=== PATIENT | female | born 1975 | race Caucasian/White ===

== ENCOUNTER 2019-08-25 16:26 | Outpatient (CLI) | payer OTHER, BC, SELFPAY ==
--- NOTE | ~2019-08-25 | XR_ITS ---
EXAMINATION: XR chest 2V DATE: 08/25/2019 16:52 INDICATION: Shortness of breath. TECHNIQUE: Frontal and lateral views of the chest were obtained. COMPARISON: Chest 2 views 04/17/2017 FINDINGS: The chest demonstrates clear lungs without pneumonia, pleural effusion, or pneumothorax. Th e heart size is normal. IMPRESSION: 1. No acute cardiopulmonary disease. Reviewed, dictated and finalized at location A.
== END 2019-08-25 16:27 | disposition home or self-care (01) ==
LOC: ANHIMG 16:30
PROVIDERS: PCP Family Medicine; Visit Provider Nurse Practitioner Family
DX: R06.02 Shortness of breath (principal)
CPT/HCPCS: 71046

== ENCOUNTER 2019-08-31 18:39 | Emergency (ER) | payer OTHER, BC, SELFPAY ==
--- NOTE | ~2019-08-31 | XR_ITS ---
EXAMINATION: XR chest 1V portable EXAM DATE: 08/31/2019 19:19 INDICATION: Dyspnea. TECHNIQUE: Frontal and lateral projections of the chest obtained and reviewed. Comparison is made to prior examination from 08/25/2019. FINDINGS: The lungs are clear. There are no pleural effusions. The cardiomediastinal silhouette is within normal limits. There is no pneumothorax suspected. The bones and soft tissues are unremarkab le. IMPRESSION: No acute cardiopulmonary findings. Reviewed, dictated and finalized at location A.
--- NOTE | 2019-08-31 18:50 | ED.SOB ---
HPI - SOB/Dyspnea General Chief Complaint: Shortness of Breath/Dyspnea Stated Complaint: sob, heart palpitations neg covid 19 test Time Seen by Provider: 08/31/19 18:45 Source: patient and RN notes reviewed Mode of arrival: ambulatory Limitations: no limitations History of Present Illness HPI Narrative: Pt is a 44 y/o female with a Hx of asthma, who presents to the ED with c/o intermittent SOB starting 6 days ago. She notes that she was evaluated at [facility] ED for her symptoms on 08/26/19, and states that she received a test for COVID-19 at that time. Pt notes that yesterday she was advised the test came back negative. She states that she has been in contact with her PCP for her symptoms, and notes that he has prescribed her Ceftin and Augmentin. Pt states that she has also been using some of her 's DuoNeb at home. She states that she is having trouble breathing due to her throat feeling constricted. She reports postnasal discharge, intermittent palpitations, lightheadedness, and dizziness accompanying her SOB, but denies any fever, chills, or vomiting. Pt states that her palpitations are currently resolved. She notes that she also developed nausea while eating dinner earlier this evening. MD elicited complaint: shortness of breath Pertinent past history: asthma Onset (ago): day(s) (6) Timing: intermittent Known history of: asthma Associated symptoms: palpitations (resolved), nausea/vomiting (nausea), dizziness, lightheadedness and other (postnasal discharge) Related Data Allergies Allergy/AdvReac Type Severity Reaction Status Date / Time cetyl alcohol Allergy Severe RASH Verified 01/01/18 09:38 skin cleanser Allergy Severe RASH Verified 01/01/18 09:38 sodium lauryl sulfate Allergy Severe RASH Verified 01/01/18 09:38 stearyl alcohol Allergy Severe RASH Verified 01/01/18 09:38 erythromycin base Allergy Unknown Unknown Verified 08/21/19 09:41 paraben Allergy Unknown Unknown Verified 08/21/19 09:41 propylene glycol Allergy Unknown Unknown Verified 08/21/19 09:41 soap Allergy Unknown Unknown Verified 08/21/19 09:41 Sulfa (Sulfonamide Allergy Unknown Unknown Verified 08/21/19 09:41 Antibiotics) sulfanilamide Allergy Unknown Unknown Verified 08/21/19 09:41 tetracycline Allergy Unknown Unknown Verified 08/21/19 09:41 Wasp Allergy Intermediate REDNESS Uncoded 01/01/18 09:38 Review of Systems Review of Systems: All systems reviewed & are unremarkable except as noted in HPI and below Constitutional: Constitutional: Denies chills and Denies fever(s) ENT: Reports post nasal drip Cardiovascular: Cardiovascular: Reports palpitations (resolved) Respiratory: Respiratory: Reports dyspnea Gastrointestinal: Gastrointestinal: Reports nausea and Denies vomiting Neurologic: Reports dizziness and Reports other (lightheadedness) [facility] Past Medical History Medical History Asthma Gastric ulcer GERD (gastroesophageal reflux disease) Hyperthyroidism Peripheral neuropathy Surgical History Surgical History History of lumbar surgery History of lumpectomy of left breast Hx of appendectomy Hx of tonsillectomy Social History Social History Smoking status: Never smoker Alcohol intake: current Exam Narrative: Exam Narrative: General appearance: Well-developed, well-nourished, mask on, sat on room air by pulse oximetry at 100%, at the bedside patient in sitting up position, with hyperventilation. Skin: Normal color Head: Normocephalic, nontraumatic Eyes: Clear conjunctiva ENT: Oropharynx normal, ears normal, nose normal Neck: Supple, nontender Chest and respiratory: Airway patent, no respiratory distress, no accessory muscle use Heart: Regular rate/rhythm Abdomen: Soft, nontender, no organomegaly, quiet bowel sounds Vascular: Normal peripheral pulses, normal capillary refill.
[2019-08-31 18:52] VITALS: BP 142/80; PULSE 95; RESP 22; TEMP 36.9; O2SAT 100
--- NOTE | 2019-08-31 19:03 | ECG_ITS ---
Measurements Intervals [place] Rate: 89 P: 31 LA: 151 QRS: 36 QRSD: 81 T: 12 QT: 355 QTc: 433 Interpretive Statements SINUS RHYTHM RSR' IN V1 OR V2, PROBABLY NORMAL VARIANT BORDERLINE ST-T WAVE ABNORMALITY- INF/LAT LEADS BASELINE WANDER- I, II, AVR, AVL, AVF, V1-V6 BORDERLINE ECG Electronically Signed On 09-01-2019 7:10:12 CDT by Connor Escamilla D.O.
[2019-08-31 19:06] VITALS: O2SAT 99
[2019-08-31 19:07] VITALS: PULSE 86
[2019-08-31 19:10] VITALS: BP 134/98; PULSE 87; RESP 19; TEMP 36.8; O2SAT 100
[2019-08-31 19:20] LABS: Basophils Percent Auto 0.3 % (0.2-1.2); Eosinophils Percent Auto 0.2 % (0-4.4); Hemoglobin 13.4 g/dL (12.0-15.0); Immature Granulocyte Absolute 0.03 K/mm3 (0.00-0.031); Immature Granulocyte Percent A 0.3 % (0-0.5); Lymphocytes Absolute Auto 3.07 K/mm3 (0.9-3.2); Lymphocytes Percent Auto 33.8 % (18.3-44.2); Mean Corpuscular HGB Conc 33.5 g/dl (32-36); Mean Corpuscular Hemoglobin 29.1 pg (26-34); Mean Platelet Volume 10.3 fl (7.4-10.4); Monocytes Absolute Auto 0.5 K/mm3 (0.1-0.6); Monocytes Percent Auto 5.4 % (2.6-8.5); Neutrophils Absolute Auto 5.5 K/mm3 (1.3-6.7); Platelet Count Result 335 k/mm3 (150-375); Red Cell Distribution Width 12.8 % (11.5-14.5); White Blood Count 9.1 K/mm3 (4.5-10.0)
--- NOTE | 2019-08-31 19:34 | PC.NURSE ---
Assumed care of pt at this time. report from LAINE Garcia
[2019-08-31 19:35] LABS: Base Excess ABG 2.8 mEq/l (+/-2.0); Fractional Inspired Oxygen 21 %; HCO3 ABG 21.7 mEq/l (22.0-26.0); Oxygen Content ABG 19.6 %vol (16.0-22.0); Oxygen Saturation ABG 99.1 % (95.0-100.0); Oxyhemoglobin 97.8 % THb (90.0-100.0); PO2 FiO2 Ratio Arterial Blood 5.95 %; Total Hemoglobin 14.1 g/dL (12.0-18.0)
[2019-08-31 19:37] LABS: PCO2 ABG 20.7 mmHg (35.0-45.0); pH ABG 7.638 (7.350-7.450)
[2019-08-31 19:38] LABS: Device ROOM AIR; Modified Allen's Test Pass; Site Drawn LEFT RADIAL
[2019-08-31 19:39] LABS: D Dimer 0.27 ug/mL (<0.48)
[2019-08-31 19:41] LABS: Alanine Aminotransferase 32 U/L (4-35); Alkaline Phosphatase 78 U/L (38-126); Aspartate Amino Transferase 39 U/L (14-36); Bilirubin,Total 0.3 mg/dL (0.2-1.3); Blood Urea Nitrogen 12 mg/dL (7-17); Carbon Dioxide 23 mmol/L (22-30); Chloride 104 mmol/L (98-107); Estimated CRCL calculation 85 ml/min; Estimated Glomerular Filt Rate > 60; Glucose 109 mg/dL (65-105); Potassium 3.6 mmol/L (3.4-5.0); Sodium 138 mmol/L (137-145)
[2019-08-31 19:48] LABS: NT Pro B Type Natriuretic Pept 14 PG/ML (5-100); Troponin I < 0.012 ng/mL (0.000-0.034)
[2019-08-31] MEDS: LORAZEPAM INJ 2 MG/ML VIAL 1 MG IV PUSH (20:47)
[2019-08-31 20:49] VITALS: BP 133/87; PULSE 83; RESP 17; O2SAT 100
[2019-08-31 21:00] VITALS: BP 165/65; PULSE 55; RESP 20; O2SAT 99
== END 2019-08-31 21:00 | disposition home or self-care (01) ==
PROVIDERS: Emergency Provider Emergency Medicine; PCP Family Medicine
DX: F45.8 Other somatoform disorders (principal); J45.909 Unspecified asthma, uncomplicated; K21.9 Gastro-esophageal reflux disease without esophagitis; G62.9 Polyneuropathy, unspecified; E05.90 Thyrotoxicosis, unspecified without thyrotoxic crisis or storm
CPT/HCPCS: 36415; 36600; 71045; 80053; 82805; 83880; 84484; 85025; 85380; 93005; 96374; 99284; J2060

== ENCOUNTER 2020-05-03 06:54 | Outpatient (NON) | payer OTHER, BC, SELFPAY ==
[2020-05-03 23:36] LABS: SARS-CoV-2 RNA PCR Negative
== END 2020-05-03 06:55 ==
PROVIDERS: PCP Family Medicine; Visit Provider Nurse Practitioner Family
DX: R68.89 Other general symptoms and signs (principal); R05 Cough; J34.89 Other specified disorders of nose and nasal sinuses; Z20.828 Contact with and (suspected) exposure to other viral communicable diseases
CPT/HCPCS: 87635; C9803; U0003

== ENCOUNTER 2020-05-20 16:38 | Emergency (ER) | payer OTHER, BC, SELFPAY ==
--- NOTE | ~2020-05-20 | XR_ITS ---
XR foot RT min 3V 05/20/2020 17:13 INDICATION: Status post fall. Right foot pain. PROCEDURE: 4 views right foot COMPARISON: No prior studies for comparison. FINDINGS: Fracture, dislocation or subluxation is not identified. Lisfranc joint intact. Small degene rative calcaneal enthesophyte. The soft tissues appear within normal limits. No foreign bodies are i dentified. IMPRESSION: 1: NO ACUTE BONE OR JOINT ABNORMALITY IDENTIFIED. Reviewed, dictated and finalized at location A. [employer]URING [employer]ATOR
[2020-05-20 16:51] VITALS: BP 133/91; PULSE 98; RESP 18; TEMP 37.1; O2SAT 98
--- NOTE | 2020-05-20 17:06 | ED.LOWEXIN ---
HPI - Extremity Injury (Lower) General Chief Complaint: Extremity Injury, Lower Stated Complaint: right ankle/toe injury Time Seen by Provider: 05/20/20 16:57 Source: patient and RN notes reviewed Mode of arrival: ambulatory Limitations: no limitations History of Present Illness HPI Narrative: Patient presents today complaining of an injury to her right ankle and foot. She injured her foot this morning when coming down some stairs at home, when tripping on a piece of concrete at the bottom of her stairs. States her ankle likely rolled at this point before falling. She is complaining of pain to the lateral ankle and foot as well as the fifth toe. She does report some tingling to the fifth toe as well. She took 600 mg of ibuprofen at 1530 and has been applying ice throughout the day today. She currently rates her pain 4?5/10. She has been ambulatory on her heel throughout the day. History of ankle sprain on the same ankle. MD complaint: ankle injury Related Data Home Medications Medication Instructions Recorded Confirmed cetirizine 10 mg tablet 10 mg PO DAILY 09/25/19 05/20/20 famotidine [Pepcid] 20 mg DAILY 05/20/20 05/20/20 Allergies Allergy/AdvReac Type Severity Reaction Status Date / Time cetyl alcohol Allergy Severe RASH Verified 05/02/20 09:20 skin cleanser Allergy Severe RASH Verified 05/02/20 09:20 sodium lauryl sulfate Allergy Severe RASH Verified 05/02/20 09:20 stearyl alcohol Allergy Severe RASH Verified 05/02/20 09:20 erythromycin base Allergy Unknown Unknown Verified 05/02/20 09:20 paraben Allergy Unknown Unknown Verified 05/02/20 09:20 propylene glycol Allergy Unknown Unknown Verified 05/02/20 09:20 soap Allergy Unknown Unknown Verified 05/02/20 09:20 Sulfa (Sulfonamide Allergy Unknown Unknown Verified 05/02/20 09:20 Antibiotics) sulfanilamide Allergy Unknown Unknown Verified 05/02/20 09:20 tetracycline Allergy Unknown Unknown Verified 05/02/20 09:20 Wasp Allergy Intermediate REDNESS Uncoded 05/02/20 09:20 Review of Systems Review of Systems: Narrative: CONSTITUTIONAL: Denies body aches, fever, chills, or sweats. EYES: Denies visual changes, redness, or discharge. ENT: Denies rhinorrhea, congestion, sore throat, or otalgia. CARDIOVASCULAR: Denies chest pain, palpitations, or edema. RESPIRATORY: Denies cough or dyspnea. GASTROINTESTINAL: Denies abdominal pain, nausea, vomiting, or diarrhea. GENITOURINARY: Denies dysuria or hematuria. SKIN: Denies rash, itching, or wounds. MUSCULOSKELETAL: Denies back pain, or myalgia. + Right ankle, foot, and toe injury NEUROLOGIC: Denies headache, numbness, tingling, or weakness. PSYCH: Denies depression or anxiety. [facility] Past Medical History Medical History (Updated 05/20/20 @ 17:34 by Marilyn Loo, [facility], ) Asthma Gastric ulcer GERD (gastroesophageal reflux disease) Hyperthyroidism Peripheral neuropathy Surgical History Surgical History History of lumbar surgery History of lumpectomy of left breast Hx of appendectomy Hx of tonsillectomy Family History Family History Grandparent Family history of lung cancer Diabetes mellitus Other Hypertension Social History Social History Smoking status: Never smoker Alcohol intake: current Gender identity (if verbalized by the patient): Female Comments At time of signature, I have reviewed and agree with nursing past medical, surgical, social and family history unless otherwise noted. Please see nursing chart for further information. There is no relevant family history pertinent to the presenting complaint Exam Narrative: Exam Narrative: GENERAL: Well-appearing, well-nourished, and in no acute distress. HEAD: Normocephalic, atraumatic. EYES: EOMI. No redness or drainage. Conjunctivae normal. ENT: Mucous membranes pink a
== END 2020-05-20 17:39 | disposition home or self-care (01) ==
PROVIDERS: Emergency Provider Nurse Practitioner; PCP Family Medicine
DX: S93.401A Sprain of unspecified ligament of right ankle, initial encounter (principal); W18.09XA Striking against other object with subsequent fall, initial encounter; J45.909 Unspecified asthma, uncomplicated; K21.9 Gastro-esophageal reflux disease without esophagitis; E05.90 Thyrotoxicosis, unspecified without thyrotoxic crisis or storm; G62.9 Polyneuropathy, unspecified
CPT/HCPCS: 73630; 99213; G0463

== ENCOUNTER 2020-06-18 08:33 | Outpatient (NON) | payer OTHER, BC, SELFPAY ==
[2020-06-18 14:38] LABS: Influenza Control Positive
[2020-06-18 18:46] LABS: SARS-CoV-2 RNA PCR Positive
== END 2020-06-18 08:34 ==
LOC: ANHCOVIDDT 08:35
PROVIDERS: PCP Family Medicine; Visit Provider Physician Assistant Medical
DX: U07.1 COVID-19 (principal); R68.89 Other general symptoms and signs
CPT/HCPCS: 87804; C9803; U0003; U0005

== ENCOUNTER 2021-04-03 11:26 | Outpatient (CLI) | payer OTHER, BC, SELFPAY ==
--- NOTE | ~2021-04-03 | XR_ITS ---
EXAMINATION: XR hand RT 2V INDICATION: Right hand pain TECHNIQUE: Two views of the right hand are obtained. COMPARISON: None available FINDINGS: Bone alignment is normal. There is no fracture. The joint spaces are maintained. The soft t issues are unremarkable. IMPRESSION: 1. No acute osseous abnormality. Reviewed, dictated and finalized at location B.
== END 2021-04-03 11:27 | disposition home or self-care (01) ==
LOC: ANHIMG 11:32
PROVIDERS: PCP Family Medicine; Visit Provider Physician Assistant Medical
DX: M79.641 Pain in right hand (principal)
CPT/HCPCS: 73120

== ENCOUNTER 2022-09-06 16:33 | Emergency (ER) | payer OTHER, BC, SELFPAY ==
--- NOTE | 2022-09-06 16:45 | ED.URI ---
HPI - URI/Sore Throat General Chief Complaint: Upper Respiratory Infection Stated Complaint: cough Time Seen by Provider: 09/06/22 17:00 Source: patient Mode of arrival: ambulatory Limitations: no limitations History of Present Illness HPI Narrative: Patient is a 47-year-old female that presents with 1 week of congestion and increased cough. Patient reports coughing fits where she feels like she can not catch her breath and then has small amount of sputum come up. Patient states daughter has similar symptoms and has been diagnosed with a sinus infection. Patient denies any fever, ear pain, nausea, vomiting, and diarrhea, sore throat. Has tried Mucinex and takes a daily allergy medicine. Related Data Home Medications Medication Instructions Recorded Confirmed cetirizine 10 mg tablet (Zyrtec) 10 mg PO DAILY 09/25/19 09/06/22 famotidine 20 mg tablet (Pepcid) 20 mg DAILY 05/20/20 09/06/22 azelastine 137 mcg (0.1 %) nasal 137 mcg intranasal DAILY 02/28/21 09/06/22 spray aerosol lifitegrast 5 % eye drops in a 1 drp EACH EYE DAILY 02/28/21 09/06/22 dropperette loteprednol etabonate 0.25 % eye 1 drp EACH EYE DAILY 02/28/21 09/06/22 drops,suspension metoprolol succinate 25 mg 25 mg PO .QD 07/24/22 09/06/22 tablet,extended release 24 hr Allergies Allergy/AdvReac Type Severity Reaction Status Date / Time cetyl alcohol Allergy Severe RASH Verified 09/06/22 16:51 skin cleanser Allergy Severe RASH Verified 09/06/22 16:51 sodium lauryl sulfate Allergy Severe RASH Verified 09/06/22 16:51 stearyl alcohol Allergy Severe RASH Verified 09/06/22 16:51 erythromycin base Allergy Unknown Unknown Verified 09/06/22 16:51 paraben Allergy Unknown Unknown Verified 09/06/22 16:51 propylene glycol Allergy Unknown Unknown Verified 09/06/22 16:51 soap Allergy Unknown Unknown Verified 09/06/22 16:51 Sulfa (Sulfonamide Allergy Unknown Unknown Verified 09/06/22 16:51 Antibiotics) sulfanilamide Allergy Unknown Unknown Verified 09/06/22 16:51 tetracycline Allergy Unknown Unknown Verified 09/06/22 16:51 Wasp Allergy Intermediate REDNESS Uncoded 09/06/22 16:51 Review of Systems Review of Systems: All systems reviewed & are unremarkable except as noted in HPI and below Constitutional: Constitutional: Denies body ache(s), Denies fever(s), Denies headache(s), Denies malaise and Denies weakness Eyes: Eyes: Denies loss of vision ENT: Denies otalgia, Denies headache(s), Reports nasal congestion, Denies sinus pain and Denies sore throat Cardiovascular: Cardiovascular: Denies chest pain, Denies irregular heart rhythm and Denies dyspnea Respiratory: Respiratory: Reports cough and Denies dyspnea Gastrointestinal: Gastrointestinal: Denies abdominal pain, Denies melena, Denies hematochezia, Denies diarrhea, Denies nausea and Denies vomiting Musculoskeletal: Musculoskeletal: Denies back pain, Denies myalgias and Denies arthralgias Integumentary/Breasts: Skin/Breast: Denies pruritus and Denies rash Neurologic: Denies headache(s), Denies loss of vision and Denies weakness Psychiatric: Psychiatric: Reports no additional psychiatric complaints PMFSH Past Medical History Medical History Asthma BMI 28.0-28.9,adult BMI 29.0-29.9,adult BMI greater than 30 COVID-19 Gastric ulcer GERD (gastroesophageal reflux disease) Holter monitor, abnormal Hyperthyroidism Peripheral neuropathy Surgical History Surgical History History of lumbar surgery History of lumpectomy of left breast Hx of appendectomy Hx of tonsillectomy Family History Family History Grandparent Family history of lung cancer Diabetes mellitus Father No problems noted. Mother Gastrointestinal complaint Sibling Depression Other Hypertension Social History Social History (Reviewed 08/07/22 @ 13:41 by Mini Coy
[2022-09-06 16:52] VITALS: BP 130/90; PULSE 84; RESP 18; TEMP 36.4; O2SAT 100
== END 2022-09-06 17:21 | disposition home or self-care (01) ==
PROVIDERS: Emergency Provider Nurse Practitioner Family; PCP Family Medicine
DX: J32.9 Chronic sinusitis, unspecified (principal); J40 Bronchitis, not specified as acute or chronic; J45.909 Unspecified asthma, uncomplicated; K21.9 Gastro-esophageal reflux disease without esophagitis; E05.90 Thyrotoxicosis, unspecified without thyrotoxic crisis or storm; G62.9 Polyneuropathy, unspecified; Z86.16 Personal history of COVID-19
CPT/HCPCS: 99213; G0463

== ENCOUNTER 2023-07-17 09:03 | Emergency (ER) | payer OTHER, BC, SELFPAY ==
--- NOTE | 2023-07-17 09:12 | ED.URI ---
HPI - URI/Sore Throat General Chief Complaint: Upper Respiratory Infection Stated Complaint: Cough, Congestion, Sneeze, Headache, Bodyache Time Seen by Provider: 07/17/23 09:12 Source: patient Mode of arrival: ambulatory Limitations: no limitations History of Present Illness HPI Narrative: Bess is a 48-year-old female patient presenting to the clinic today with complaints of cough, congestion, sneezing, headache, and body aches times 2-3 days. She reports symptoms really started on Saturday however she had some throat spasming on Saturday. Denies any known fever, chest pain, or shortness of breath MD elicited complaint: fever, cough, sore throat, nasal congestion and other (Sneezing, headache and body aches) Related Data Home Medications Medication Instructions Recorded Confirmed famotidine 20 mg tablet (Pepcid) 20 mg PO DAILY 05/20/20 07/17/23 epinephrine 0.3 mg/0.3 mL 0.3 mg IM PRN PRN Allergic Reaction 07/17/23 07/17/23 injection, auto-injector levonorgestrel 21 mcg/24 hours (8 See Rx Instructions .Route .COMPLEX 07/17/23 07/17/23 yrs) 52 mg intrauterine device (Mirena) metoprolol succinate 25 mg 25 mg PO DAILY 07/17/23 07/17/23 tablet,extended release 24 hr Allergies Allergy/AdvReac Type Severity Reaction Status Date / Time cetyl alcohol AdvReac Mild RASH Verified 07/17/23 09:30 erythromycin base AdvReac Mild Rash Verified 07/17/23 09:30 paraben AdvReac Mild Rash Verified 07/17/23 09:30 propylene glycol AdvReac Mild Rash Verified 07/17/23 09:30 skin cleanser AdvReac Mild RASH Verified 07/17/23 09:30 soap AdvReac Mild Rash Verified 07/17/23 09:30 sodium lauryl sulfate AdvReac Mild RASH Verified 07/17/23 09:30 stearyl alcohol AdvReac Mild RASH Verified 07/17/23 09:30 Sulfa (Sulfonamide AdvReac Mild Rash Verified 07/17/23 09:30 Antibiotics) sulfanilamide AdvReac Mild Rash Verified 07/17/23 09:30 tetracycline AdvReac Mild Rash Verified 07/17/23 09:30 venom-wasp AdvReac Mild Redness of Verified 07/17/23 09:30 Skin Review of Systems Review of Systems: Pertinent positives per HPI. Patient denies any fever, rash, visual changes, dizziness, shortness of breath, chest pain, palpitations, nausea, vomiting, diarrhea, constipation, abdominal pain, or any urinary issues. [facility] Past Medical History Medical History Allergic reaction Anxiety about health Asthma BMI 29.0-29.9,adult BMI 30.0-30.9,adult Chest pain COVID-19 Elevated fasting glucose Gastric ulcer GERD (gastroesophageal reflux disease) Holter monitor, abnormal Hyperthyroidism Peripheral neuropathy Stress disorder, acute Surgical History Surgical History History of lumbar surgery History of lumpectomy of left breast Hx of appendectomy Hx of tonsillectomy Family History Family History Grandparent Family history of lung cancer Diabetes mellitus Father No problems noted. Mother Gastrointestinal complaint Sibling Depression Other Hypertension Social History Social History Smoking status: Never smoker Second hand tobacco smoke exposure: Yes Alcohol intake: current Drinks per week: 1 Substance use: never Substance use type: does not use Lack of Transportation: No Lack of Food: Never True Current Housing: I Have Housing Concerned About Future Housing: No Difficulty Paying Gas/Electric Bills: No Difficulty Paying for Meds: No Currently Unemployed: No Education: Associate Degree Difficulty w/ Childcare or Family Care: No Living arrangements: with family Occupation/Education: occupation 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
[2023-07-17 09:44] VITALS: BP 130/85; PULSE 78; RESP 18; TEMP 36.8; O2SAT 98
== END 2023-07-17 09:56 | disposition home or self-care (01) ==
PROVIDERS: Emergency Provider Nurse Practitioner Family; PCP Family Medicine
DX: U07.1 COVID-19 (principal); J45.909 Unspecified asthma, uncomplicated; K21.9 Gastro-esophageal reflux disease without esophagitis; E05.90 Thyrotoxicosis, unspecified without thyrotoxic crisis or storm; G62.9 Polyneuropathy, unspecified
CPT/HCPCS: 87426; 87804; 99213; G0463

== ENCOUNTER 2024-03-18 10:06 | Outpatient (CLI) | payer OTHER, BC, SELFPAY ==
--- NOTE | ~2024-03-18 | MR_ITS ---
MRI of the brain Clinical History: Anesthesia of skin Technique: Axial and sagittal T1-weighted images were acquired. These were followed by axial T2-weigh [place], diffusion weighted, gradient, and FLAIR images. Findings: No abnormal signal seen in the brain parenchyma. No acute infarct, intracranial hemorrhage or mass lesion. Ventricles and subarachnoid spaces are unremarkable. Orbits are unremarkable. Paranasal sinuses and m astoid air cells are clear. Major intracranial flow voids are intact. Sagittal midline structures are intact. IMPRESSION: Normal exam. Reviewed, dictated and finalized at location M. IMPRESSION: Normal exam.
== END 2024-03-18 10:07 | disposition home or self-care (01) ==
LOC: MICIMG 10:07
PROVIDERS: PCP Family Medicine; Visit Provider Nurse Practitioner Adult Health
DX: R20.0 Anesthesia of skin (principal)
CPT/HCPCS: 70551

== ENCOUNTER 2024-10-21 15:28 | Outpatient (CLI) | payer OTHER, SELFPAY ==
--- NOTE | ~2024-10-21 | US_ITS ---
Abdominal Sonogram: Real-time sonographic imaging of the abdomen was performed. Clinical History: Abdominal pain Findings: The liver appears echogenic, with no evidence of bile duct dilatation. Probable focal fatt y sparing versus possibly small cyst adjacent to gallbladder fossa. Main portal vein demonstrates nor mal direction of flow. The spleen is normal in size without evidence of focal lesion. The gallbladde r is well distended, and appears normal with no evidence of gallstone or wall thickening. The common bile duct measures 4 mm. The visualized pancreas, aorta, and IVC are unremarkable. The right kidney measures 10.1 cm in length and the left kidney measures 9.0 cm. There is no hydronephrosis or renal calculus. Impression: Diffuse fatty infiltration of the liver. Reviewed, dictated and finalized at location . Impression: Diffuse fatty infiltration of the liver.
== END 2024-10-21 15:29 | disposition home or self-care (01) ==
LOC: MICIMG 15:29
PROVIDERS: PCP Family Medicine; Visit Provider Nurse Practitioner Family
DX: R10.2 Pelvic and perineal pain (principal); R10.12 Left upper quadrant pain; K76.0 Fatty (change of) liver, not elsewhere classified
CPT/HCPCS: 76700

== ENCOUNTER 2024-11-04 10:22 | Emergency (ER) | payer OTHER, SELFPAY ==
--- OUTSIDE RECORDS SUMMARY | 2024-11-04 10:29 | XMS_ITS ---
Author Organization [facility] Address [address] [place] [address] [place] [id number] Care Team Providers Care Senior Strategy Analyst Name Role Phone HANNAH CLEMENTS, YOCASTA Primary Care Provider Saraha andry RomanochelseaDinh Unavailable [phone] AWILDA IRVING PT Unavailable Unavailable ALLERGIES Allergen (clinical drug ingredient) Drug/Non Drug Allergy documented on EMR Reaction Allergy Type Onset Date Status erythromycin Erythromycin GI upset Drug Allergy A ctive Substance with sulfonamide structure and antibacterial mechanism of action (substance) Sulfa Antibiotics hives Drug Allergy Active tetracycline Tetracycline GI upset Drug Allergy A ctive REASON FOR VISIT LT L4-5/L5-S1 TFE MEDICATIONS Medication SIG (Take, Route, Frequency, Duration) Notes Start Date End Date Status Famotidine 20 MG 1 tablet at bedtime as needed Orally Once a day for 30 day(s) Active Cetirizine HCl 10 MG 1 tablet Orally Onc e a day for 30 day(s) Active Xanax 0.25 MG 1-2 tablets Orally 3 0 minutes prior to injection 01/31/2023 Activ e Metoprolol Succinate ER 25 MG Oral for 90 Active Xanax 0.25 MG 1 tablet Orally 30 m inutes prior to injection for 1 days 05/01/2023 Active Albuterol Sulfate HFA 108 (90 Base) MCG/ACT 1 puff as needed Inhalation every 4 hrs Active Metoprolol Succinate 25 MG 1 capsule Ora lly Once a day for 30 day(s) Active tiZANidine HCl 2 MG 1 tablet as needed O rally Three times a day for 30 days 01/31/2023 Active Ibuprofen 800 MG 1 tablet with food o r milk as needed Orally every 8 hrs Active Encounters Encounter Location Date Provider Diagnosis [facility] [address] [facility] [place] [id number] 05/31/2023 Dinh Austin PLAN OF TREATMENT No Information Progress Notes * Examination Category Sub-Category Detail Notes Category Not es Examination/ Pre-Anesthesia Assessment General: The patient is alert and oriented X 3 in moderate distress secondary to pain HEENT: Normocephalic, atrau matic. PERRL. The oropharynx is clear Neck: There is limited ran ge of motion of the cervical spine to 60 degrees with extension and lateral rotation bilaterally. There is tenderness to palpation over the bilateral C3-4 through C7-T1 facet joints. Extension and lateral rotation of the cervical spine reproduces the patients typical axial neck pain. The axial loading test is positive. There is diffuse tenderness to palpation over the bilateral cervical paraspinal muscles and significant muscle spasm throughout. There are palpable myofascial trigger points within the body of the trapezius muscles bilaterally Heart: Regular rate and rhy thm Chest: Clear to auscultatio n bilaterally Abdomen: Soft and benign with normal bowel sounds throughout Musculoskeletal and Extremities: There i s tenderness to palpation over the bilateral L2-3 through L5-S1 facet joints. Extension and lateral rotation of the lumbar spine reproduces the patient's typical axial low back pain. Sacha's, [place]'s and [place]'s are positive bilaterally. There is tenderness to palpation over the left sacroiliac joint and greater trochanter. There is tenderness to palpation over the bilateral lumbar paraspinal muscles Neurological: There is positive st raight leg raising on the left. There are no focal strength deficits in the bilateral upper and lower extremities Skin: Clean, dry and intac t Psychiatric: Mood and affect are normal
--- OUTSIDE RECORDS SUMMARY | 2024-11-04 10:29 | XMS_ITS | Referral Summary ---
Author Organization [facility] [address] [facility] Address [address] [place] [address] Care Team Providers Care Clamshell Operator Name Role Phone Trevor Cantor MD Unavailable [phone] Nitin Villagran MD Primary Care Provider [phone] Yahaira Norwood Unavailable [phone] Mendoza Odonnell MD Unavailable Encounters Date Type Department Care Team Description 10/20/2024 12:01 PM CDT - 10/20/2024 11:59 PM CDT Hospital Encounter [address] [address] Abdominal pain Discharge Disposition: Discharge to home or self care 10/20/2024 12:[address] 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); Iron deficiency anemia secondary to blood loss (chronic) 08/14/2024 2:43 PM CDT - 08/14/2024 11:59 PM CDT Hospital Encounter [facility] B[facility] [address] [address] Category 3 mammography result with short follow-up interval suggested for probably benign finding Discharge Disposition: Discharge to home or self care from Last 3 Months Allergies Active Allergy Reactions Criticality Noted Date Comments Clindamycin Itching,Muscle pain Medium 01/03/2024 Dysphagia Erythromycin Nausea only,Stomach upset Low 01/09/2023 Metronidazole Headache Low 08/02/2023 Levofloxacin Other (See comments) Low 01/12/2022 Tendon pain Other Hives Medium 05/15/2022 Wasps/hornets/ceta melody cleanser Sulfa (Sulfonamide Antibiotics) Hives Medium 01/09/2023 Tetracycline Stomach upset Low 01/09/2023 Tetracyclines Nausea only Low Abd pain and cramping Medications cetirizine (ZyrTEC) 10 mg tablet Take 1 tablet (10 mg total) by mouth nightly Active azelastine (ASTELIN) 137 mcg (0.1 %) nasal spray Administer 1 spray into each nostril 2 (two) times a day Use in each nostril as directed 30 mL 6 0 Active vitamin E (AQUASOL E) 400 unit capsule Take 1 capsule (400 Units total) by mouth daily 04/30/2022 last dose Active ProAir HFA 90 mcg/actuation inhalerIndicati ons:Bronchitis Inhale 2 puffs every 6 (six) hours as needed for wheezing or shortness of breath 1 each 3 Active metoprolol XL (TOPROL-XL) 25 mg extended release tablet TAKE ONE TABLET BY MOUTH NIGHTLY 90 tablet 3 4 Active Active Problems Problem Noted Date Diagnosed Date ELLIOTT (obstructive sleep apnea) 01/06/2024 Assessment & Plan (07/06/2024 3:43 PM AVIONICS SYSTEMS INTEGRATION SPECIALIST): The patient continue to wear CPAP auto titrating range 5-20 cm water pressure while sleeping. Her DME is [facility]. I did send an order over for the patient to be refitted for her mask. Assessment & Plan (01/06/2024 10:19 AM CDT): The patient is benefitting from the auto titrating CPAP unit with a range of 5- 20 cm water pressure for ongoing symptoms of ELLIOTT. Her DME supplier is [facility] home care services. She will follow up here in 4 months. If the daytime hypersomnia persists, then I would consider stimulant therapy. Nasal obstruction 01/01/2024 Assessment & Plan (01/01/2024 8:33 PM CDT): She is deviation of her nasal septum to the right side superiorly which could be causing these symptoms. I reviewed that with her on her CT scan showing her the films. She also may have some problems with nasal vestibulitis. I recommended treating her presumptively for a staph infection although I do not think she clinically has 1. I am going to treat her with a steroid pack along with clindamycin. I am going to have her switch to Bactroban ointment for the nasal crusting that she deals with. She would like to do that. If she has continued problems I have asked her to return. Facial pain 01/01/2024 Assessment & Plan (01/01/2024 8:34 PM CDT): I reviewed her scan with her. I do not see any evidence of a displaced fracture. I wonder if maybe she had a hairline fracture which could be painful for a while. I told him to expect this to continue to improve and if it does not I would like to see her again. She understands. Equivocal stress test 02/19/2023 Displacement of intrauterine contraceptive devic e 05/04/2022 Overview (05/04/2022): Added automatically from request for surgery [id number] Palpitations 10/03/2021 COVID-19 10/03/2021 Dizziness 10/03/2021 Precordial pain 10/03/2021 Hypertrophy of nasal turbinates 03/28/2020 Deviated nasal septum 03/28/2020 Assessment & Plan (01/01/2024 8:35 PM CDT): She does have some deviation of her nasal septum to the right superiorly. I do not think that she really needs to have surgery to correct this and we talked about that. She really isn't interested in pursuing that either. Chronic sinusitis 02/01/2020 History of Graves' disease 09/29/2019 Gestational diabetes 09/29/2019 Resolved Problems Problem Noted Date Diagnosed Date Resolved Date Snoring 09/03/2023 01/06/2024 Assessment & Plan (09/03/2023 4:07 PM CDT): The patient presents with snoring and daytime fatigue. Per her insurance, I have ordered a home sleep test and she will follow up here in 3 months. Immunizations Immunization Administration Dates Next Due Pfizer SARS-CoV-2 Monovalent Vaccination (12+ Yrs) PURPLE 12/16/2020 Tdap 03/31/2016 Social History Tobacco Use Types Packs/Day Years Used Date Smoking Tobacco: Never Smokeless Tobacco: Never Tobacco Cessation:Counseling Given: Not Answered Alcohol Use Standard Drinks/Week Comments Yes 0 (1 standard drink = 0.6 oz pur e alcohol) AUDIT-C Answer Date Recorded Q1: How often do you have a drink containing alc ohol? Monthly or less 07/06/2024 Q2: How many drinks containi ng alcohol do you have on a typical day when you are drinking? 1 or 2 07/06/2024 Q3: How often do you have si x or more drinks on one occasion? Never 07/06/2024 PHQ-2 Answer Date Recorded PHQ-2 Total Score 0 01/03/2021 Personal Safety Answer Date Recorded Have you ever been in or are you currently in a harmful physical or emotional relationship or is someone making you feel afraid or unsafe? Denies 06/26/2024 Comments No Sex and Gender Information Value Date Recorded Sex Assigned at Not on file Legal Sex Female 7:52 AM AVIONICS SYSTEMS INTEGRATION SPECIALIST Gender Identity Female 04/25/2020 4:36 PM AVIONICS SYSTEMS INTEGRATION SPECIALIST Sexual Orientation Straight 04/25/2020 4: 36 PM AVIONICS SYSTEMS INTEGRATION SPECIALIST Last Filed Vital Signs Vital Sign Reading Time Taken Comments Blood Pressure 110/68 07/06/2024 3:30 PM AVIONICS SYSTEMS INTEGRATION SPECIALIST Pulse 87 07/06/2024 3:30 PM AVIONICS SYSTEMS INTEGRATION SPECIALIST Temperature 36.7 C (98 F) 07/06/2024 3:30 PM AVIONICS SYSTEMS INTEGRATION SPECIALIST Respiratory Rate 14 07/06/2024 3:30 PM AVIONICS SYSTEMS INTEGRATION SPECIALIST Oxygen Saturation 99% 07/06/2024 3:30 PM AVIONICS SYSTEMS INTEGRATION SPECIALIST Inhaled Oxygen Concentration - - Weight 90.6 kg (199 lb 11.2 oz) 07/06/2024 3:30 PM AVIONICS SYSTEMS INTEGRATION SPECIALIST Height 167.6 cm (5' 6) 07/06/2024 3:30 PM AVIONICS SYSTEMS INTEGRATION SPECIALIST Body Mass Index 32.23 07/06/2024 3:30 PM AVIONICS SYSTEMS INTEGRATION SPECIALIST Plan of Treatment Upcoming Encounters Date Type Department Care Team (Latest Contact Info) Description 11/19/2024 11:00 AM CDT Hospital Encounter [facility] [address] [place] [address] Quinton Diaz, [address] [address] 11/19/2024 11:00 AM CDT - 11/19/2024 11:30 AM CDT Surgery [facility] [address] [place] [address] Quinton Diaz, [address] [id number] ESOPHAGOGASTRODUODENOSCOPY Scheduled Procedures Name Priority Associated Diagnoses Date/Ti me ESOPHAGOGASTRODUODENOSCOPY Bloating Gerd RUQ pain 11/19/2024 11:00 AM CDT GASTRO-ESOPHOGEAL REFLUX SEBASTIAN T WITH ELCT Bloating Gerd RUQ pain 11/19/2024 11:00 AM CDT Medical Devices Implanted Type Area Banquet Director Device Identifier Shelf Expiration Date Model / Serial / Lot [employer] Marker Biospy Site Mini Cork Shape [employer]el[employer] - [id number] Implanted:Qty: 1 on 01/04/2023 by Gareth Polk MD at [facility] Clip Left: Breast [employer] [id number] 03/27/2023 JOSEK-KRISTY ERO / / [id number] Procedures Procedure Name Priority Date/Time Associated Diagnosis Comments EGFR Routine 10/20/2024 12:01 PM CDT Abdominal pain URINALYSIS, MICROSCOPIC ONLY Routine 10/20/2024 12:01 PM CDT Abdominal pain AMYLASE Routine 10/20/2024 12:01 PM CDT Abdominal pain COMPREHENSIVE METABOLIC PANEL Routine 10/20/2024 12:01 PM CDT Abdominal pain CBC WITHOUT DIFFERENTIAL Routine 10/20/2024 12:01 PM CDT Abdominal pain LIPASE Routine 10/20/2024 12:01 PM CDT Abdominal pain URINALYSIS AND REFLEX TO MICROSCOPIC AND CULTURE Routine 10/20/2024 12:01 PM CDT Abdominal pain EGFR Routine 08/24/2024 10:05 AM CDT 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) DIFFERENTIAL AUTO Routine 08/24/2024 10: 05 AM CDT 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) INSULIN, TOTAL Routine 08/24/2024 10:05 AM CDT 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) CBC WITH AUTO DIFFERENTIAL Routine 08/24/2024 10:05 AM CDT 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) IRON PROFILE W/ IBC Routine 08/24/2024 1 0:05 AM CDT 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) TSH Routine 08/24/2024 10:05 AM CDT 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) FERRITIN Routine 08/24/2024 10:05 AM CDT 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) COMPREHENSIVE METABOLIC PANEL Routine 08/24/2024 10:05 AM CDT 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) LIPID PANEL Routine 08/24/2024 10:05 AM CDT 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) T3, FREE Routine 08/24/2024 10:05 AM CDT 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) THYROGLOBULIN ANTIBODIES Routine 08/24/2024 10:05 AM CDT 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) THYROID PEROXIDASE ANTIBODY Routine 08/24/2024 10:05 AM CDT 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) VITAMIN D 25 HYDROXY Routine 08/24/2024 10:05 AM CDT 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) T4, FREE Routine 08/24/2024 10:05 AM CDT 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) KENJI-VENTURA VIRUS VCA ANTIBODY PANEL Routine 08/24/2024 10:05 AM CDT 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) CMV, IGG AND IGM ANTIBODIES Routine 08/24/2024 10:05 AM CDT 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) PARVOVIRUS B19 ANTIBODY, IGG AND IGM Routine 08/24/2024 10:05 AM CDT BLOOD MISC TO [place]GEWATER Routine 08/24/2024 12 :00 AM CDT BLOOD MISC TO [place] Routine 08/24/2024 12 :00 AM CDT DIAGNOSTIC MAMMOGRAM BILATERAL W RAFITA Schedule Routine, Read Routine (OP Routine) 08/14/2024 3:16 PM CDT Category 3 mammography result with short follow-up interval suggested for probably benign finding COLONOSCOPY 06/26/2024 9:46 AM AVIONICS SYSTEMS INTEGRATION SPECIALIST PAP AND HIGH RISK HPV, REFLEX TO GENOTYPING Routine 08/28/2021 11:38 AM CDT Well woman exam from Last 3 Months or Most Recently Relevant to Health Maintenance Results * eGFR (10/20/2024 12:01 PM CDT) eGFR 88 >=60 mL/min/1. 73 m2 Comment: Interpretive Data Reference Interval Normal >/= 90 mL/min/1.73m2 Mildly decreased* 60 - 89 mL/min/1.73m2 Mildly to moderately decreased 45 - 59 mL/min/1.73m2 Moderately to severely decreased 30 - 44 mL/min/1.73m2 Severely decreased 15 - 29 mL/min/1.73m2 Kidney Failure < 15 mL/min/1.73m2 *Relative to young adult level Estimated glomerular filtration rate is determined by the 2020 CKD-EPI equation recommended by the National Kidney Foundation (A Unifying Approach to GFR Estimation: Recommendations of the NKF-ASK Task Force on Reassessing the Inclusion of Race in Diagnosing Kidney Disease, JASN 2020). The CKD-EPI equation should not be used for patients with unstable renal function and has not been validated in children and those over 70. Current interpretive data was last reviewed 2021. Blood 10/20/2024 12:0 1 PM CDT 10/20/2024 10:14 PM CDT us Senait Toledo NP LAB BLOOD ORDERABLES Final Result [facility] [address] Department [place] [address] * (ABNORMAL) Urinalysis reflex to microscopic and culture Urine, clean voided (10/20/2024 12:01 PM CDT) Color, ur Yellow Yellow Clarity, ur Clear Clear CERNER Specific gravity, ur 1.015 1.003 - 1.030 CERNER CH pH, urine 7.0 CERNER Comment: Interpretive Data U rine pH is affected by diet, medications, systemic acid-base disturbances, and renal tubular function. pH may affect urinary stone formation. For example, urine pH below 6.0 may help reduce the tendency for calcium phosphate stones and pH greater than 6.0 may reduce the tendency for uric acid stone formation. Source: [facility] Current Interpretive Data was last revised on 2017 Protein, ur ql Negative Negative CERNER CH Glucose, ur ql Negative Negative CERNER CH Ketones, ur Negative Negative CERNER CH Bilirubin, ur Negative Negative CERNER CH Blood, ur Trace(A) Negative CERNER CH Urobilinogen, ur <2.0 <2.0 mg/dL [facility] CH Nitrite, ur Negative Negative [facility] CH Leukocyte esterase, ur Negative Negative CERNER CH UA reflex comment Reflex to microscopic UA will be performed. CERNER Urine, clean voided 10/20/2024 12:01 PM CDT 10/20/2024 10:05 PM CDT Narrative CERNER CH - 10/20/2024 10:24 PM CDT Fax results to [phone] alina velazco Senait Toledo NP LAB MICROBIOLOGY - GENERAL ORDERABLES Final Result [facility] [address] [place] [address] * (ABNORMAL) Urinalysis, microscopic only (10/20/2024 12:01 PM CDT) WBC, ur 0-5 0 - 5 /HPF RBC, ur 0-2 0 - 2 /HPF CERNER Epithelial cells, squamous, ur 1-5 0 - 5 /HPF CERNER CH Mucous, ur Present(A) CERNER CH Culture Reflex Comment Reflex conditions for urine culture (WBC >10) not met. CERNER Urine, clean voided 10/20/2024 12:01 PM CDT 10/20/2024 10:05 PM CDT Senait Toledo BEHAVIORAL HEALTH CONSULTANT LAB URINE ORDERABLES Final Result [facility] [address] [place] [address] * (ABNORMAL) CBC without differential (10/20/2024 12:01 PM CDT) WBC 10.59(H) 3.80 - 9.90 K/cumm Hgb 13.4 11.9 - 15.5 g/dL [facility] Hct 44.0 35.6 - 45.5 % [facility] CH Plt 324 150 - 400 K/cumm [facility] CH MPV 10.6 9.1 - 12.3 fL [facility] RBC 4.69 3.90 - 5.20 M/cumm [facility] CH MCV 93.8 81.3 - 96.4 fL [facility] MCH 28.6 27.1 - 33.3 pg [facility] MCHC 30.5(L) 32.3 - 35.7 g/dL [facility] CH RDW CV 13.7 11.1 - 14.9 % [facility] CH RDW SD 46.3 35.7 - 48.1 fL [facility] NRBC abs 0.00 0.00 - 0.01 K/cumm [facility] Blood Venous blood specimen / Unknown 10/20/2024 12:01 PM CDT 10/20/2024 10:05 PM CDT Senait Toledo BEHAVIORAL HEALTH CONSULTANT LAB BLOOD ORDERABLES Final Result [facility] [address] Department of [employer] [place], [place] [id number] * Lipase (10/20/2024 12:01 PM CDT) Lipase 22 10 - 99 Units/L Blood Venous blood specimen / Unknown 10/20/2024 12:01 PM CDT 10/20/2024 10:05 PM CDT Senait Toledo BEHAVIORAL HEALTH CONSULTANT LAB BLOOD ORDERABLES Final Result [facility] [address] [place] [address] * Amylase (10/20/2024 12:01 PM CDT) Amylase 35 30 - 99 Units/L Blood 10/20/2024 12:0 1 PM CDT 10/20/2024 10:05 PM CDT Senait Toledo BEHAVIORAL HEALTH CONSULTANT LAB BLOOD ORDERABLES Final Result Performing Organization Address [facility] de Phone Number KENAN YUSUF [address] [place] [address] * (ABNORMAL) Comprehensive metabolic panel (10/20/2024 12:01 PM CDT) Pathologist [facility] Sodium 141 135 - 145 mmol/L Potassium, pl 4.0 3.3 - 4.9 mmol/L CERNER CH Chloride 104 97 - 110 mmol/L CERNER CH CO2 29 22 - 32 mmol/L CERNER CH Anion gap 8 2 - 15 mmol/L [facility] BUN 5(L) 6 - 25 mg/dL [facility] Creatinine 0.82 0.60 - 1.10 mg/dL CERNER Glucose 108 70 - 199 mg/dL CERNER Comment: Interpretive Data Fasting glucose >/= 126 mg/dl is diagnostic for diabetes. Fasting is defined as no caloric intake for at least 8 hours. Fasting glucose between 100 mg/dl to 125 mg/dl is diagnostic of prediabetes. In a patient with classic symptoms of hyperglycemia or hyperglycemic crisis, a random glucose >/= 200 mg/dl is diagnostic for diabetes. In the absence of unequivocal hyperglycemia, results should be confirmed by repeat testing. The classification and Diagnosis of Diabetes Diabetes Care 2021; 46: S19-S40. Current interpretive data was last revised 2022. Calcium 9.7 8.5 - 10.3 mg/dL CERNER CH Bilirubin, total 0.4 0.1 - 1.2 mg/dL [facility] CH Protein, pl 7.4 6.5 - 8.5 g/dL [facility] CH Albumin 4.3 3.5 - 5.0 g/dL CERN[facility] CH Alk phos 91 40 - 130 Units/L C[facility] CH ALT 29 7 - 45 Units/L [facility] CH AST 29 10 - 45 Units/L [facility] CH Blood Venous blood specimen / Unknown 10/20/2024 12:01 PM CDT 10/20/2024 10:05 PM CDT Senait Toledo BEHAVIORAL HEALTH CONSULTANT LAB BLOOD ORDERABLES Final Result KE[facility] MADELIN [address] [place] [address] * eGFR (08/24/2024 10:05 AM CDT) eGFR 84 >=60 mL/min/1. 73 m2 Comment: Interpretive Data Reference Interval Normal >/= 90 mL/min/1.73m2 Mildly decreased* 60 - 89 mL/min/1.73m2 Mildly to moderately decreased 45 - 59 mL/min/1.73m2 Moderately to severely decreased 30 - 44 mL/min/1.73m2 Severely decreased 15 - 29 mL/min/1.73m2 Kidney Failure < 15 mL/min/1.73m2 *Relative to young adult level Estimated glomerular filtration rate is determined by the 2020 CKD-EPI equation recommended by the National Kidney Foundation (A Unifying Approach to GFR Estimation: Recommendations of the NKF-ASK Task Force on Reassessing the Inclusion of Race in Diagnosing Kidney Disease, JASN 2020). The CKD-EPI equation should not be used for patients with unstable renal function and has not been validated in children and those over 70. Current interpretive data was last reviewed 2021. Blood 08/24/2024 10:0 5 AM CDT 08/24/2024 9:59 PM CDT Damian Vides DC LAB BLOOD ORDERABLES Final Result CAROLINJUAN YUSUF [address] Department [place] [address] * Differential, auto (08/24/2024 10:05 AM CDT) Neutrophil abs 4.6 1.5 - 6.5 K/cumm Imm gran abs 0.1 0.0 - 0.1 K/cumm CERNER CH Lymphocyte abs 1.9 0.8 - 3.3 K/cumm [facility] CH Monocyte abs 0.5 0.2 - 0.8 K/cumm [facility] CH Eosinophil abs 0.1 0.0 - 0.5 K/cumm [facility] CH Basophil abs 0.0 0.0 - 0.1 K/cumm [facility] CH Neutrophil pct 63.9 % CERNER CH Comment: Interpretive Data Percent cell count reference ranges are not reported, since discordance with absolute values may lead to misinterpretation of CBC data. Current Interpretive Data was last revised on 2017. Imm gran pct 0.8 % CERNER Comment: Interpretive Data Percent cell count reference ranges are not reported, since discordance with absolute values may lead to misinterpretation of CBC data. Current Interpretive Data was last revised on 2017. Lymphocyte pct 26.9 % CERNER Comment: Interpretive Data Percent cell count reference ranges are not reported, since discordance with absolute values may lead to misinterpretation of CBC data. Current Interpretive Data was last revised on 2017. Monocyte pct 6.8 % CERNER Comment: Interpretive Data Percent cell count reference ranges are not reported, since discordance with absolute values may lead to misinterpretation of CBC data. Current Interpretive Data was last revised on 2017. Eosinophil pct 1.0 % CERNER Comment: Interpretive Data Percent cell count reference ranges are not reported, since discordance with absolute values may lead to misinterpretation of CBC data. Current Interpretive Data was last revised on 2017. Basophil pct 0.6 % CERNER Comment: Interpretive Data Percent cell count reference ranges are not reported, since discordance with absolute values may lead to misinterpretation of CBC data. Current Interpretive Data was last revised on 2017. Blood 08/24/2024 10:0 5 AM CDT 08/24/2024 9:57 PM CDT [facility] LAB BLOOD ORDERABLES Final Result Performing Organization Address City/[facility]/ZIP Co de Phone Number KENAN YUSUF [address] [place] [address] * Thyroglobulin antibodies (08/24/2024 10:05 AM CDT) Anti-thyroglobulin <1.8 <4.0 IUnits/mL [facility] ref Lab Comment: ADDITIONAL INFORMATION PLEASE NOTE: The given thyroglobulin antibody (TgAb) reference cutoff of <4.0 IU/mL is for the evaluation of autoimmune thyroiditis. A cutoff of <1.8 IU/mL may be more suitable for the detection of potential thyroglobulin antibody (TgAb) interference in thyroglobulin immunoassays. The thyroglobulin antibody testing method is an immunoenzymatic assay manufactured by [employer]. and performed on the D[employer] DXI 800. Values obtained from different assay methods or kits may be different and cannot be used interchangeably. The results cannot be interpreted as absolute evidence for the presence or absence of malignant disease. Test Performed by: [place] [address] [employer] Tender: Jaciel Chase Ph.D.; CLIA# [id number] Blood 08/24/2024 10:0 5 AM CDT 08/24/2024 9:57 PM CDT Damian Reji Beckye SC LAB BLOOD ORDERABLES Final Result KE[facility] YUSU[facility] [address] [place] [address] [facility] * Iron profile w/ IBC (08/24/2024 10:05 AM CDT) Iron 87 35 - 145 mcg/dl TIBC 337 250 - 400 mcg/dL [facility] Transferrin saturation 26 20 - 50 % [facility] Blood 08/24/2024 10:0 5 AM CDT 08/24/2024 9:57 PM CDT Narrative KENAN - 08/24/2024 10:41 PM CDT Fax results to [phone] tessy gaytan [facility] LAB BLOOD ORDERABLES Final Result KENAN YUSUF [address] Department [place] [address] * (ABNORMAL) CMV, IgG and IgM antibodies Blood (08/24/2024 10:05 AM CDT) CMV IgG Positive(A) Negative Comment: Interpretive Data Negative - Individuals with negative CMV IgG results are presumed to not have had prior exposure or infection with CMV and are, therefore, considered susceptible to primary infection. Equivocal - Equivocal results may occur during acute infection or may be due to nonspecific binding reactions. Submit an additional sample for testing if clinically indicated. Positive - Indicates presence of detectable CMV IgG antibody. Results indicate past or recent CMV infection. Testing performed by: [facility], [address] [place] [address]., [id number] CMV IgM Negative Negative KENAN Comment: Interpretive Data Negative - Negative CMV IgM results suggests that the patient is not experiencing acute or active infection. However, a negative result does not rule-out primary CMV infection. Equivocal - Equivocal results may occur during acute infection or may be due to nonspecific binding reactions. Submit an additional sample for testing if clinically indicated. Positive - Positive CMV IgM results may indicate a recent infection (primary, reactivation, or reinfection). Testing performed by: [facility], [address] [place] [address], [place]., [address] Blood 08/24/2024 10:0 5 AM CDT 08/25/2024 10:09 AM CDT Damian Reji Vides DC LAB MICROBIOLOGY - GENERAL ORDERABLES Final Result KENAN YUSUF [address] [address] Department [place] [address] * (ABNORMAL) CBC with auto differential (08/24/2024 10:05 AM CDT) [facility] WBC 7.1 3.8 - 9.9 K/cumm Hgb 13.0 11.9 - 15.5 g/dL [facility] Hct 41.2 35.6 - 45.5 % [facility] Plt 293 150 - 400 K/cumm [facility] MPV 11.1 9.1 - 12.3 fL [facility] RBC 4.45 3.90 - 5.20 M/cumm [facility] MCV 92.6 81.3 - 96.4 fL [facility] MCH 29.2 27.1 - 33.3 pg [facility] MCHC 31.6(L) 32.3 - 35.7 g/dL [facility] RDW CV 13.4 11.1 - 14.9 % [facility] RDW SD 45.9 35.7 - 48.1 fL [facility] NRBC abs 0.00 0.00 - 0.01 K/cumm [facility] Blood 08/24/2024 10:0 5 AM CDT 08/24/2024 9:57 PM CDT Narrative [facility] - 08/24/2024 10:08 PM CDT Fax results to [phone] tessy gaytan Damian Vides SC LAB BLOOD ORDERABLES Final Result [facility] [address] [address] [place] [address] * (ABNORMAL) Kenji-Ventura virus (EBV) antibody panel Blood Blood, Venous (08/24/2024 10:05 AM CDT) [facility] EBV nuclear Ab Positive(A) Negative Comment: Indicates the presence of detectable IgG antibody to EBV Nuclear Antigen. Testing performed by: [facility], [address] [facility], [place]., [address] EBV VCA IgG Positive(A) Negative [facility] Comment: Indicates the presence of antibody; 90% of the adult population will have been infected with EBV sometime in the past. Testing performed by: [facility], [address] [place] [address] EBV VCA IgM Negative Negative KENAN Comment: No detectable IgM antibody to EBV-VCA. A negative result indicates no current infection with EBV. If clinical suspicion of acute EBV infection is present, testing should be repeated after one week. Testing performed by: [facility], [address] [place] [address] EBV interp Past Infection KENAN Comment:Testing performed by : [facility], [address] [place] [address] Blood Venous blood specimen / Unknown 08/24/2024 10:05 AM CDT 08/25/2024 10:07 AM CDT Narrative KENAN YUSUF - 08/25/2024 12:12 PM CDT Fax results to [phone] [facility] Provider Result Type [facility] MICROBIOLOGY - GENERAL ORDERABLES Final Result KENAN YUSUF [address] [address] [facility] [place] [address] * (ABNORMAL) Thyroid peroxidase antibody (TPO) (08/24/2024 10:05 AM CDT) Anti Thyroid Peroxidase 96(H) <=34 IUnits/mL Comment: ATPO Interpretive Data Results may be up to 28% higher in patients receiving Itraconazole. Current interpretive data was last revised 2020. Testing performed by: [facility], [address] [place] [address]., [address] Blood 08/24/2024 10:0 5 AM CDT 08/25/2024 10:12 AM CDT [facility] LAB BLOOD ORDERABLES Final Result Performing Organization Address City/[facility]/ZIP Co de Phone Number KENAN YUSUF [address] [address] [facility] [employer] [place] [address] * (ABNORMAL) Parvovirus B19 antibody, IgG and IgM Blood (08/24/2024 10:05 AM CDT) [facility] Parvovirus IgG Positive(A) Negative [facility] Parvovirus IgM Negative Negative KENAN YUSUF Parvovirus B19 Interpretation See Footnote KENAN YUSUF Comment: RESULT: Results suggest past infection. ADDITIONAL INFORMATION This test has been modified from the online facilitator's instructions. Its performance characteristics were determined by [facility] in a manner consistent with CLIA requirements. This test has not been cleared or approved by the U.S. Food and Drug Administration. Test Performed by: [place] [address] [employer] Tender: Jaciel Chase Ph.D.; CLIA# [id number] Blood 08/24/2024 10:0 5 AM CDT 08/24/2024 4:18 PM CDT [facility] LAB MICROBIOLOGY - GENERAL ORDERABLES Final Result Performing Organization Address [facility] Co de Phone Number CAROLINJUAN YUSUF [address] [address] [facility] [place] [address] [facility] * (ABNORMAL) Vitamin D 25 hydroxy (08/24/2024 10:05 AM CDT) [facility] Vitamin D 25-OH 99(H) 30 - 80 ng/mL Blood 08/24/2024 10:0 5 AM CDT 08/24/2024 9:57 PM CDT [facility] LAB BLOOD ORDERABLES Final Result Performing Organization Address [facility] Co de Phone Number KENAN MADELIN [address] [address] [facility] [place] [address] * Insulin, total (08/24/2024 10:05 AM CDT) Insulin 16.5 2.6 - 25.0 mcIUnit/mL Comment:Testing performed by : [facility], [address] [facility], [place] [address] Blood 08/24/2024 10:0 5 AM CDT 08/25/2024 10:12 AM CDT [facility] LAB BLOOD ORDERABLES Final Result KENAN [address] [address] [facility] [place] [address] * T3, free (08/24/2024 10:05 AM CDT) Free T3 2.8 2.0 - 4.4 pg/mL Blood 08/24/2024 10:0 5 AM CDT 08/24/2024 9:57 PM CDT Narrative KENAN Kunz 08/24/2024 10:41 PM CDT Fax results to [phone] [facility] LAB BLOOD ORDERABLES Final Result Performing Organization Address City/[facility]/ZIP Co de Phone Number KENAN [address] [address] [place] [address] * TSH (08/24/2024 10:05 AM CDT) Thyroid Stimulating Hormone 3.34 0.30 - 4.20 mcIUnit/mL Blood Venous blood specimen / Unknown 08/24/2024 10:05 AM CDT 08/24/2024 9:57 PM CDT [facility] LAB BLOOD ORDERABLES Final Result KENAN [address] [address] [place] [address] * (ABNORMAL) T4, free (08/24/2024 10:05 AM CDT) Free T4 0.87(L) 0.90 - 1.70 ng/dL Blood Venous blood specimen / Unknown 08/24/2024 10:05 AM CDT 08/24/2024 9:57 PM CDT [facility] LAB BLOOD ORDERABLES Final Result Performing Organization Address [facility] Co de Phone Number KENAN [address] [address] [place] [address] * Ferritin (08/24/2024 10:05 AM CDT) Pathologist [facility] Ferritin 78 15 - 150 ng/mL Blood Venous blood specimen / Unknown 08/24/2024 10:05 AM CDT 08/24/2024 9:57 PM CDT [facility] LAB BLOOD ORDERABLES Final Result Performing Organization Address [facility] de Phone Number KENAN [address] [address] [place] [address] * (ABNORMAL) Lipid panel (08/24/2024 10:05 AM CDT) Pathologist [facility] Cholesterol 216(H) 30 - 199 mg/dL Comment: Interpretive Data Ages < or = 19 years Acceptable: <170 mg/dL Borderline high: 170-199 mg/dL High: >or= 200 mg/dL Ages > or = 20 years Desirable: <200 mg/dL Borderline high: 200-239 mg/dL High: >or= 240 mg/dL Literature References: 1. Expert Panel on Integrated Guidelines for Cardiovascular Health and Risk Reduction in Children and Adolescents. Pediatrics 2011;128:S213 2. NCEP Expert Panel. Circulation 2004;110:227 Current Interpretive Data was last revised on 2018. Triglycerides 94 <=149 mg/dL KENAN YUSUF Comment: Interpretive Data Ages < or = 9 years Acceptable: <75 mg/dL Borderline high: 75-99 mg/dL High: >or= 100 mg/dL Ages 10 to 20 years Acceptable: <90 mg/dL Borderline high: 90-129 mg/dL High: >or= 130 mg/dL Ages > or = 20 years Desirable: <150 mg/dL Borderline high: 150-199 mg/dL High: 200-499 mg/dL Very high: >or= 499 mg/dL Literature References: 1. Expert Panel on Integrated Guidelines for Cardiovascular Health and Risk Reduction in Children and Adolescents. Pediatrics 2011;128:S213 2. NCEP Expert Panel. Circulation 2004;110:227 Current Interpretive Data was last revised on 2018. HDL 49 >=40 mg/dL KENAN Comment: Interpretive Data Ages < or = 19 years Acceptable: >45 mg/dL Borderline low: 40-45 mg/dL Low: <40 mg/dL Ages > or = 20 years Desirable: >or= 60 mg/dL Low: <40 mg/dL Literature References: 1. Expert Panel on Integrated Guidelines for Cardiovascular Health and Risk Reduction in Children and Adolescents. Pediatrics 2011;128:S213 2. NCEP Expert Panel. Circulation 2004;110:227 Current Interpretive Data was last revised on 2018. LDL, calculated 150(H) <=129 mg/dL KENAN Comment: Interpretive Data Ages < or = 19 years Acceptable: <110 mg/dL Borderline high: 110-129 mg/dL High: >or= 130 mg/dL Ages > or = 20 years Optimal: <100 mg/dL Near optimal: 100-129 mg/dL Borderline high: 130-159 mg/dL High: >160 mg/dL Calculated using the Ha LDL-C estimating equation. This equation was implemented on 2024. Prior to this date LDL-C was estimated using the Friedewald equation. Literature References: 1. Expert Panel on Integrated Guidelines for Cardiovascular Health and Risk Reduction in Children and Adolescents. Pediatrics 2011;128:S213 2. NCEP Expert Panel. Circulation 2004;110:227 3. Ha Hager al. VANI Cardiol. 2020 October 01;5(5):540-548. doi: 10.1001/jamacardio.2020.0013 Current Interpretive Data was last revised on 2024. Non-HDL Cholesterol 167 mg/dL KENAN Comment: Interpretive Data Ages < or = 19 years Acceptable: <120 mg/dL Borderline high: 120-144 mg/dL High: >145 mg/dL Ages > or = 20 years When triglycerides are >200 mg/dL, Non-HDL cholesterol is a secondary target of therapy with treatment goals that are 30 mg/dL greater than the LDL cholesterol target. Literature References: 1. Expert Panel on Integrated Guidelines for Cardiovascular Health and Risk Reduction in Children and Adolescents. Pediatrics 2011;128:S213 2. NCEP Expert Panel. Circulation 2004;110:227 Current Interpretive Data was last revised on 2018. Chol/HDL ratio 4 [facility] Blood Venous blood specimen / Unknown 08/24/2024 10:05 AM CDT 08/24/2024 9:57 PM CDT Damian Vides DC LAB BLOOD ORDERABLES Final Result [facility] [address] [address] [place] [address] * Comprehensive metabolic panel (08/24/2024 10:05 AM CDT) Sodium 140 135 - 145 mmol/L Potassium, pl 4.0 3.3 - 4.9 mmol/L [facility] Chloride 104 97 - 110 mmol/L [facility] CO2 24 22 - 32 mmol/L [facility] Anion gap 12 2 - 15 mmol/L [facility] BUN 9 6 - 25 mg/dL [facility] Creatinine 0.85 0.60 - 1.10 mg/dL [facility] Glucose 107 70 - 199 mg/dL [facility] Comment: Interpretive Data Fasting glucose >/= 126 mg/dl is diagnostic for diabetes. Fasting is defined as no caloric intake for at least 8 hours. Fasting glucose between 100 mg/dl to 125 mg/dl is diagnostic of prediabetes. In a patient with classic symptoms of hyperglycemia or hyperglycemic crisis, a random glucose >/= 200 mg/dl is diagnostic for diabetes. In the absence of unequivocal hyperglycemia, results should be confirmed by repeat testing. The classification and Diagnosis of Diabetes Diabetes Care 2021; 46: S19-S40. Current interpretive data was last revised 2022. Calcium 9.5 8.5 - 10.3 mg/dL [facility] Bilirubin, total 0.3 0.1 - 1.2 mg/dL [facility] Protein, pl 7.4 6.5 - 8.5 g/dL [facility] Albumin 4.3 3.5 - 5.0 g/dL [facility] Alk phos 78 40 - 130 Units/L [facility] ALT 27 7 - 45 Units/L [facility] AST 32 10 - 45 Units/L [facility] Blood Venous blood specimen / Unknown 08/24/2024 10:05 AM CDT 08/24/2024 9:57 PM CDT [facility] LAB BLOOD ORDERABLES Final Result Performing Organization Address City/[facility] de Phone Number KENAN YUSUF [address] [address] [place] [address] * BLOOD MISC TO [place] (08/24/2024 12:00 AM CDT) Test name, chem FRTUP Maxwell ref Lab Misc See Footnote KENAN MADELIN Comment: Test Result Flag Unit RefValue Free Thyroxine Index(FTI), S Thyroxine Binding Capacity, 1.2 TBI 0.8 - 1.3 S Thyroxine, Total, S 7.3 mcg/dL 4.5 - 11.7 Free Thyroxine Index 6.1 mcg/dL 4.8 - 12.7 Test Performed by: [facility] - [address] [address] [employer] Tender: Jaciel Chase Ph.D.; CLIA# [id number] Blood 08/24/2024 08/25/2024 12: 24 PM CDT Narrative KENAN CH - 08/27/2024 7:46 AM CDT FREE THRYROXINE INDEX [facility] LAB BLOOD ORDERABLES Final Result Performing Organization Address City/[facility] Co de Phone Number KENAN YUSUF [address] [address] Department [employer] [place] [address] [facility] * BLOOD MISC TO [place] (08/24/2024 12:00 AM CDT) Test name, chem t4 Maxwell ref Lab Misc See Footnote KENAN YUSUF Comment: Test Result Flag Unit RefValue T4 (Thyroxine), Total Only, 6.3 mcg/dL 4.5 - 11.7 S Test Performed by: [place] [address] [employer] Tender: Jaciel Chase Ph.D.; CLIA# [id number] Blood 08/24/2024 08/25/2024 12: 22 PM CDT Narrative KENAN - 08/27/2024 9:36 AM CDT t4 total Damian Vides DC LAB BLOOD ORDERABLES Final Result Performing Organization Address [facility] Co de Phone Number KENAN YUSUF [address] [place] [address] [facility] * Diagnostic Mammogram Bilateral W [place] (08/14/2024 3:16 PM CDT) Anatomical Region Laterality Modality Breast Bilateral Mammography 08/14/2024 3:41 PM CDT Narrative 08/14/2024 3:49 PM CDT EXAM DESCRIPTION: DIAGNOSTIC MAMMOGRAM BILATERAL W RAFITA REASON FOR STUDY: 49-year-old female presents for follow-up of a probably benign, sonographically occult right breast focal asymmetry and for annual left screening mammogram. TECHNIQUE: CC and MLO views of the bilateral breasts were obtained with digital technique using breast tomosynthesis with C view. COMPARISON: 01/10/2024, 07/10/2023, 01/04/2023, 12/14/2022, 06/15/2022, 12/13/2021, 11/07/2021 FINDINGS: DENSITY: There are scattered areas of fibroglandular density. MAMMOGRAM FINDINGS: The probably benign focal asymmetry in the upper outer right breast, anterior to middle depth, has not suspiciously changed on mammogram since December 2022, at which time it was sonographically occult. Microcalcifications associated with this finding are also unchanged. These microcalcifications were characterized as benign milk of calcium on prior mammograms. Other similar appearing microcalcifications in both breasts have not suspiciously changed and are considered to be benign as well. There is an unchanged biopsy marking clip in the upper outer left breast. No new suspicious finding is seen in either breast on mammogram. IMPRESSION: 1. The probably benign focal asymmetry in the upper outer right breast, anterior to middle depth, has not suspiciously changed since December 2022. This was occult on prior ultrasound. Stable microcalcifications associated with this finding are also unchanged, characterized as benign milk of calcium on prior mammograms. Follow-up right diagnostic mammogram in 6 months is recommended to document 2 years of stability (i.e. benignity). 2. No mammographic evidence of malignancy in the left breast. Screening mammography of the left breast in 1 year is recommended. BIRADS: 3 - Probably benign finding, short-interval follow-up suggested. The patient was notified of these findings and recommendations at the time of the examination. 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 Room: [facility] ENDOSCOPY ROOM 05 Note Status: Finalized Procedure: Colonoscopy Indications: Screening for colorectal malignant neoplasm Referring MD: Providers: Geena Lyle M.D. Medicines: See the Anesthesia note for documentation of the administered medications Complications: No immediate complications. Estimated Blood Loss: Estimated blood loss was minimal. Procedure: The benefits, risks and alternatives of theprocedure and sedation were discussed and informed consentwas obtained. All questions were answered. Please referto the signed informed consent document in the medical record. The scope was passed under direct vision.The CF-H190L colonoscope was introduced through theanus and advanced to the cecum, identified byappendiceal orifice and ileocecal valve. The colonoscopy was performed with ease. The patient tolerated the procedure well. The quality of the bowelpreparation was adequate. Findings: The perianal and digital rectal examinations were normal. The terminal ileum appeared normal. Diverticula were found in the colon. A 5 mm polyp was found in the sigmoid colon. The polyp was sessile.The polyp was removed with a hot biopsy forceps. Resection and retrieval were complete. Internal hemorrhoids were found during retroflexion. The hemorrhoids were small. Impression: - The examined portion of the ileum was normal. - Diverticulosis. - One 5 mm polyp in the sigmoid colon, removed witha hot biopsy forceps. Resected and retrieved. - Internal hemorrhoids. Recommendation: - Repeat colonoscopy in 5 years for surveillance. - No aspirin, ibuprofen, naproxen, or other non-steroidal anti-inflammatory drugs for 5 days. Geena Lyle M.D. Geena Lyle M.D. 06/26/2024 10:09:45 AM . Number of Addenda: 0 Note Initiated On: 06/26/2024 9:46 AM Recognized by the [place] [employer] for promoting quality in endoscopy us Geena Lyle MD ENDOSCOPY PROCEDURES Final Resul t * Pap and High Risk HPV, reflex to Genotyping (08/28/2021 11:38 AM CDT) Thin prep (Pap test) 08/28/2021 11:38 AM CDT 08/29/2021 11:38 AM CDT Narrative PATHOLOGY [facility] - 08/31/2021 5:56 PM CDT [facility] Department of Pathology [address] [place] [id number] Final Report with Addendum Note to Patients: This report may contain a detailed description of human tissue sent by a health care provider to the laboratory for pathologic evaluation. The content of this report is essential for diagnosis and may provide important critical findings. This information may be unfamiliar to patients to review without a medical professional present. It is advised that the patient review this report in the presence of a health care provider who can answer questions and explain the details. Patient Name: BESS MÉNDEZ Address: [address] [place] [address]- Gender: F : 1975 (Age: 46) Service: Laboratory Location: [facility] #: [id number] Patient Type: [facility] SPECIMEN Taken: 08/28/2021 Received: 08/29/2021 Accessioned:: 08/30/2021 Reported: 08/31/2021 Physician(s): Trevor Cantor M.D. [facility] Diagnosis: Source of Specimen: SCREENING THIN PREP IMAGED PAP w/ HPV Specimen Adequacy: - Satisfactory for evaluation; endocervical/transformation zone component present General Category: - Negative for intraepithelial lesion or malignancy MARLEN Holguin(ASCP) Report Electronically Reviewed and Signed Out By MARLEN Holguin(ASCP) 08/31/2021 17:56:25 Addenda: HPV Test Interpretation NEGATIVE for types 16, 18, 31, 33, 35, 39, 45, 51, 52, 56, 58, 59, 66 and 68. Test performed utilizing Gen-Probe Aptima assay. MARLEN [place](ASCP) Report Electronically Reviewed and Signed Out By AMRLEN [place](ASCP) 08/30/2021 13:47:16 Specimen(s) Received: A: SCREENING THIN PREP IMAGED PAP w/ HPV Clinical History: Last Menstrual Period: 07/11/21 The Pap test is a screening test used to aid in the detection of cervical cancer and its precursors. It should not be the sole means by which malignant and premalignant lesions are diagnosed. Both false negative and false positive results may occur. It also has poor sensitivity for the detection of endometrial lesions and should not be used to evaluate suspected endometrial abnormalities. For these reasons it is most important to obtain Pap tests at regular intervals. The performance characteristics of some immunohistochemical stains, fluorescence in-situ hybridization tests and immunophenotyping by flow cytometry cited in this report (if any) were determined by the Surgical Pathology Department at [facility] as part of an ongoing quality control engineer program and in compliance with federally mandated regulations drawn from the Clinical Laboratory Improvement Act of 1988 (CLIA '88). Some of these tests rely on the use of analyte specific reagents and are subject to specific labeling requirements by the US Food and Drug Administration. Such diagnostic tests may only be performed in a facility that is certified by the Department of Health and Human Services as a high complexity laboratory under CLIA '88. The FDA has determined that such clearance or approval is not necessary. This test is used for clinical purposes. It should not be regarded as investigational or for research. Nevertheless, federal rules concerning the medical use of analyte specific reagents require that the following disclaimer be attached to the report: This test was developed and its performance characteristics determined by the Surgical Pathology Department [facility]. It has not been cleared or approved by the U. S. Food and Drug Administration. 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
--- OUTSIDE RECORDS SUMMARY | 2024-11-04 10:29 | XMS_ITS ---
Author Organization [facility] Address [address] [place] [address] ANDRAE Kwon [id number] Care Team Providers Care Fuel Cell Engineer Name Role Phone HANNAH CLEMENTS, YOCASTA Primary Care Provider Saraha andry RomanokaterositaoswaldDinh Unavailable [phone] AWILDA IRVING PT Unavailable Unavailable ALLERGIES Allergen (clinical drug ingredient) Drug/Non Drug Allergy documented on EMR Reaction Allergy Type Onset Date Status erythromycin Erythromycin GI upset Drug Allergy A ctive Substance with sulfonamide structure and antibacterial mechanism of action (substance) Sulfa Antibiotics hives Drug Allergy Active tetracycline Tetracycline GI upset Drug Allergy A ctive REASON FOR VISIT Follow Up, Left Neck Pain MEDICATIONS Medication SIG (Take, Route, Frequency, Duration) Notes Start Date End Date Status Famotidine 20 MG 1 tablet at bedtime as needed Orally Once a day for 30 day(s) Active Cetirizine HCl 10 MG 1 tablet Orally Onc e a day for 30 day(s) Active Metoprolol Succinate ER 25 MG Oral for 90 Active methylPREDNISolone 4 MG as directed Orally 024 Active Xanax 0.25 MG 1 tablet Orally 30 minutes prior to injection for 1 days 05/01/2023 Active Albuterol Sulfate HFA 108 (9 0 Base) MCG/ACT 1 puff as needed Inhalation every 4 hrs Active Metoprolol Succinate 25 MG 1 capsule Ora lly Once a day for 30 day(s) Active tiZANidine HCl 2 MG 1 tablet as needed Orally Three times a day for 30 days 01/31/2023 Active Ibuprofen 800 MG 1 tablet with food o r milk as needed Orally every 8 hrs Active VITAL SIGNS Blood pressure systolic 127 mm Hg 07/04/19 24 Blood pressure diastolic 101 mm Hg 024 Heart Rate 69 /min 07/04/2023 Respiratory Rate 16 /min 07/04/2023 Height 5 ft 6 in in 07/04/2023 Weight 188 lbs 07/04/2023 BMI 30.34 kg/m2 07/04/2023 Encounters Encounter Location Date Provider Diagnosis [facility] [address] [facility] [place] [address] 07/04/2023 Dinh Austin Radiculopathy, lumba r region M54.16 ; Sacroiliitis, not elsewhere classified M46.1 ; Radiculopathy, lumbosacral region M54.17 ; Intervertebral disc disorders with radiculopathy, lumbar region M51.16 ; 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 ; Osseous stenosis of neural canal of lumbar region M99.33 ; Other intervertebral disc degeneration, lumbar region M51.36 ; Other intervertebral disc degeneration, lumbosacral region M51.37 ; Spondylosis without myelopathy or radiculopathy, lumbar region M47.816 ; Spondylosis without myelopathy or radiculopathy, lumbosacral region M47.817 ; Radiculopathy, cervical region M54.12 ; Spondylosis without myelopathy or radiculopathy, cervical region M47.812 ; Cervical disc disorder at C5-C6 level with radiculopathy M50.122 ; 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 ; 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 terminal attack controller (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 of anticoagulants Z79.01 ; Fear of injections and transfusions F40.231 and intermediate (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 of non-steroidal anti-inflammatories (NSAID) Z79.1 ASSESSMENTS Encounter Date Diagnosis Assessment Notes Treatment Notes Treatment Clinical Notes Section Notes 07/04/2023 Radiculopathy, lumbar region (ICD-10 - M54.16) 07/04/2023 Sacroiliitis, not elsewhere classified (ICD-10 - M46.1) 07/04/2023 Radiculopathy, lumbosacral region (ICD-10 - M54.17) 07/04/2023 Intervertebral disc disorders with radiculopathy, lumbar region (ICD-10 - M51.16) 07/04/2023 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 She states her primary care provider ordered cervical MRI. She is currently awaiting scheduling department to give her an appointment date for this test. Patient instructed to notify the office once imaging has been obtained so it can be reviewed and treatment plan formulated moving forward. Patient verbalized understanding. She would like to return to the office in 1 month for follow-up and reevaluation of her pain at that time or sooner after imaging has been obtained. 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 Austin. I have discussed and reviewed all of the pertinent history, physical examination findings and diagnostic imaging results with him. As a result of our discussion, Dr. Austin has determined the above assessment and directed the treatment plan. This note was dictated using voice recognition software and therefore inadvertent errors may have occurred. This note was dictated by ZACHARY Muniz PLAN OF TREATMENT Medication Medication Name Sig Start Date Stop Date Notes methylPREDNISolone 4 MG as directed Orally 07/04/2023 Treatment Notes Assessment Notes Radiculopathy, cervical region In regard s to patient's cervical pain. She states her primary care provider ordered cervical MRI. She is currently awaiting scheduling department to give her an appointment date for this test. Patient instructed to notify the office once imaging has been obtained so it can be reviewed and treatment plan formulated moving forward. Patient verbalized understanding. She would like to return to the office in 1 month for follow-up and reevaluation of her pain at that time or sooner after imaging has been obtained. Other The above-named darrel ent was evaluated in conjunction with Dr. Austin. I have discussed and reviewed all of the pertinent history, physical examination findings and diagnostic imaging results with him. As a result of our discussion, Dr. Austin has determined the above assessment and directed the treatment plan. This note was dictated using voice recognition software and therefore inadvertent errors may have occurred. This note was dictated by ZACHARY Muniz Next Appt Details Follow Up: 4 Weeks OPV, Reas on: Progress Notes * Examination Category Sub-Category Detail [...] patient's typical axial low back pain. Sacha's, Evansdale's and Gaenslen's are positive bilaterally. There is [...] t Psychiatric: Mood and affect are normal History and Physical Notes * HPI (History of Present Illness) Category Sub-Category Detail Notes Category Not es Pain Management Radiographic Imaging MRI lumbar spine done on 02/15/17 demonstrates DDD with endplate signal changes and disc height loss at L4-5 and L5-S1. There is bilateral facet arthropathy from L1-2 through L5-S1. At L4-5 there is a moderate disc bulge and in combination with facet and ligamentum flavum hypertrophy there is severe left and moderate right foraminal stenosis. There is moderate central canal stenosis at L4-5 as well. At L5-S1 there is moderate bilateral foraminal stenosis. An MRI of the cervical spine demonstrates a C5-6 left lateral disc herniation. An x-ray of the cervical spine done on 07/25/22 shows mild to moderate DDD from C4-5 through C6-7 as well as bilateral facet and uncovertebral hypertrophy from C45 through C6-7 Assessment and Follow-up: Follow-up Plan kim adele:: Yes MIPS Quality 2020: MIPS Documented:: Compliant
--- OUTSIDE RECORDS SUMMARY | 2024-11-04 10:29 | XMS_ITS | Clinical Summary ---
Author Organization [place] [id number] [facility] Address [address] [place] [address] Care Team Providers Care Multiple Needle Stitcher Name Role Phone Trevor Cantor MD Unavailable [phone] Nitin Villagran MD Primary Care Provider [phone] Yahaira Norwood Unavailable [phone] Mendoza Odonnell MD Unavailable Allergies Active Allergy Reactions Criticality Noted Date [...] 01/06/2024 Assessment & Plan (07/06/2024 3:43 PM SHOP LEAD): The patient continue to wear CPAP auto titrating range 5-20 cm water pressure while sleeping. Her DME is [facility]. I did send an order over for the patient to be refitted for her mask. Assessment & Plan (01/06/2024 10:19 AM CDT): The patient is benefitting from the auto titrating CPAP unit with a range of 5- 20 cm water pressure for ongoing symptoms of ELLIOTT. Her DME supplier is [facility] home care services. She will follow up [...] (05/04/2022): Added automatically from request for surgery [id number] Palpitations 10/03/2021 COVID-19 10/03/2021 Dizziness 10/03/2021 Precordial [...] will follow up here in 3 months. 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; Iron deficiency anemia secondary to blood loss (chronic) Discharge Disposition: Discharge to home or self care 08/24/2024 9:45 AM CDT Lab [facility] Outpatient Lab at [address] [address] 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); Iron deficiency anemia secondary to blood loss (chronic) 08/14/2024 2:43 PM CDT - 08/14/2024 11:59 PM CDT Hospital Encounter [facility] Office Bldg [facility] [address] [facility] [address] [place] [address] Category 3 mammography result with short follow-up interval suggested for probably benign finding Discharge Disposition: Discharge to home or self care from Last 3 Months Immunizations Immunization Administration Dates Next Due Pfizer SARS-CoV-2 Monovalent Vaccination (12+ Yrs) PURPLE 12/16/2020 Tdap 03/31/2016 Surgical History Surgery Date Site/Laterality Comments HI CAUTERY CERVIX CRYOCAUTER Y INITIAL/REPEAT Cervix Cryosurgery - 2006-x2 (Added by TW Conv) LASIK MOLE REMOVAL MICRODISCECTOMY APPENDECTOMY TONSILLECTOMY AND ADENOIDECTOMY GYNECOLOGIC CRYOSURGERY BREAST CYST EXCISION Left 1998 benign SPINE SURGERY lumbar BREAST BIOPSY 01/04/2023 Left Benign fibroepithelial lesion-Bergom Medical History Medical History Date Comments Personal history of other di seases of the respiratory system Personal history of asthma - exercise (Added by TW Conv) Personal history of other en docrine, nutritional and metabolic disease History of hyperlipi demia - (Added by TW Conv) Seasonal allergies Asthma Bone fracture Peptic disease Thyroid disease Delayed emergence from gener al anesthesia Motion sickness August 2021 GERD (gastroesophageal reflux disease) Hypothyroidism treated with med ication Obesity Anxiety Covid 06/2020 no hospitalizati on Arrhythmia Peptic ulceration 1992 Allergic rhinitis Dizziness Nasal trauma Nosebleed Tachycardia Headache ELLIOTT (obstructive sleep apnea) 01/06/2024 Family History Medical History Relation Name Comments Diabetes Father's Brother Andreas & Benedicto Alcohol abuse Maternal Grandfather Dinh COPD Maternal Grandfather Dinh Cancer Maternal Grandfather Dinh Diabetes Maternal Grandfather Dinh Heart attack Maternal Grandfather Dinh CAD Heart disease Maternal Grandfather Dinh Hyperlipidemia Maternal Grandfather Dinh Hypertension Maternal Grandfather Dinh Other Maternal Grandfather Dinh Hypertension Maternal Grandmother Jenelle Vision loss Maternal Grandmother Jenelle dm Maternal Grandmother Jenelle htn Maternal Grandmother Jenelle Alcohol abuse Mother Flora Diabetes Mother Flora Cancer Paternal Grandfather Dinh Heart attack Paternal Grandfather Dinh [place] Heart disease Paternal Grandfather Dinh Hyperlipidemia Paternal Grandfather Dinh Hypertension Paternal Grandfather Dinh Diabetes Paternal Grandmother Aline Hypertension Paternal Grandmother Aline Breast cancer Neg Hx Ovarian cancer Neg Hx Relation Name Status Comments Father's Brother Andreas & Benedicto Maternal Grandfather Dinh Maternal Grandmother Jenelle Mother Flora Paternal Grandfather Dinh Paternal Grandmother Aline Social History Tobacco Use Types Packs/Day Years [...] on file Legal Sex Female 7:52 AM SHOP LEAD Gender Identity Female 04/25/2020 4:36 PM SHOP LEAD Sexual Orientation Straight 04/25/2020 4: 36 PM SHOP LEAD Obstetrics History Para Term AB IAB SAB Ectopic Multiple Livin g Live Births 1 1 1 Date Outcome GA Total Labor Labor/2nd/3rd Weight Sex Type Anes PTL Brinda A1 A5 Name Clin Term Comments Last Filed Vital Signs Vital Sign Reading Time Taken Comments Blood Pressure 110/68 07/06/2024 3:30 PM SHOP LEAD Pulse 87 07/06/2024 3:30 PM SHOP LEAD Temperature 36.7 C (98 F) 07/06/2024 3:30 PM SHOP LEAD Respiratory Rate 14 07/06/2024 3:30 PM SHOP LEAD Oxygen Saturation 99% 07/06/2024 3:30 PM SHOP LEAD Inhaled Oxygen Concentration - - Weight 90.6 kg (199 lb 11.2 oz) 07/06/2024 3:30 PM SHOP LEAD Height 167.6 cm (5' 6) 07/06/2024 3:30 PM SHOP LEAD Body Mass Index 32.23 07/06/2024 3:30 PM SHOP LEAD Plan of Treatment Upcoming Encounters Date Type Department Care Team (Latest Contact Info) Description 11/19/2024 11:00 AM CDT Hospital Encounter [facility] [address] [place] [address] Quinton Diaz, DO [address] [address] 11/19/2024 11:00 AM CDT - 11/19/2024 11:30 AM CDT Surgery [facility] [address] [place] [address] Quinton Diaz, DO [address] [address] ESOPHAGOGASTRODUODENOSCOPY Scheduled Procedures Name Priority Associated Diagnoses Date/Ti me ESOPHAGOGASTRODUODENOSCOPY Bloating Gerd RUQ pain 11/19/2024 11:00 AM CDT GASTRO-ESOPHOGEAL REFLUX SEBASTIAN T WITH ELCT Bloating Gerd RUQ pain 11/19/2024 11:00 AM CDT Health Maintenance Due Date Last Done Comments Albumin Creatinine Ratio, Urine 1976 Hemoglobin A1C 1976 Hepatitis C Screening 1976 Dilated Eye Exam 1976 Foot Exam 1976 Hepatitis B Screening 1994 Pneumococcal vaccine <65 (1 of 2 - PCV) 1995 Depression Screening 01/03/2022 01/03/2021 Cervical Cancer Screening 08/28/2022 08/28/2021 Covid-19 Vaccine (3 - 2023-2 5 season) 2024 01/06/2021, 12/16/2020 Regular Well Visit/Exam 18-64 08/01/2024 08/02/2023, 08/28/2021 Influenza Vaccine (Season Ended) 2025 Breast Cancer Screening-Mammogram 08/14/2025 08/14/2024, 07/10/2023, 12/14/2022, Additional history exists Lipid Panel 08/24/2025 08/24/2024, 03/04, 09/17/2020 eGFR 10/20/2025 10/20/2024, 08/02, 08/02/2023, Additional history exists Colon Cancer Screening-Colonoscopy 06/26/20342024 DTaP/Tdap/Td Vaccine (3 - Td or Tdap) 09/01/2034 09/01/2024, 03/31/2016 Medical Devices Implanted Type Area Benefit Authorizer Device Identifier Shelf Expiration Date Model / Serial / Lot [employer] Marker Biospy Site Mini Cork Shape [employer] Smark-Celero - [id number] Implanted:Qty: 1 on 01/04/2023 by Gareth Polk MD at [facility] Clip Left: Breast [employer] [id number] 03/27/2023 SeeJay-KRISTY ERO / / [id number] Procedures Procedure Name Priority Date/Time Associated Diagnosis [...] 08/24/2024 10:05 AM CDT BLOOD MISC TO BURR Routine 08/24/2024 12 :00 AM CDT BLOOD MISC TO BURR Routine 08/24/2024 12 :00 AM CDT DIAGNOSTIC MAMMOGRAM BILATERAL W RAFITA Schedule Routine, Read Routine (OP Routine) 08/14/2024 3:16 PM CDT Category 3 mammography result with short follow-up interval suggested for probably benign finding COLONOSCOPY 06/26/2024 9:46 AM SHOP LEAD PAP AND HIGH RISK HPV, REFLEX TO [...] [place] NP LAB BLOOD ORDERABLES Final Result [facility] [address] Department [place] [address] * (ABNORMAL) Urinalysis reflex to microscopic and culture Urine, clean voided (10/20/2024 12:01 PM CDT) Color, ur Yellow Yellow Clarity, ur Clear Clear [facility] Specific gravity, ur 1.015 1.003 - 1.030 [facility] pH, urine 7.0 [facility] Comment: Interpretive Data U rine pH is affected by diet, medications, systemic acid-base disturbances, and renal tubular function. pH may affect urinary stone formation. For example, urine pH below 6.0 may help reduce the tendency for calcium phosphate stones and pH greater than 6.0 may reduce the tendency for uric acid stone formation. Source: [facility] [employer] Current Interpretive Data was last revised on [...] to microscopic UA will be performed. [facility] Urine, clean voided 10/20/2024 12:01 PM CDT 10/20/2024 10:05 PM CDT Narrative [facility] - 10/20/2024 10:24 PM CDT Fax results to [phone] alina velazco Senait Toledo NP LAB MICROBIOLOGY - GENERAL ORDERABLES Final Result Performing Organization Address [facility] de Phone Number [facility] [phone] [address] Department of Laboratories [place], [place] [id number] * (ABNORMAL) Urinalysis, microscopic only (10/20/2024 12:01 PM CDT) WBC, ur 0-5 0 - 5 /HPF RBC, ur 0-2 0 - 2 /HPF [facility] Epithelial cells, squamous, ur 1-5 0 - 5 /HPF [facility] Mucous, ur Present(A) [facility] Culture Reflex Comment Reflex conditions for urine culture (WBC >10) not met. [facility] Urine, clean voided 10/20/2024 12:01 PM CDT 10/20/2024 10:05 PM CDT Senait Toledo FIRST AID INSTRUCTOR LAB URINE ORDERABLES Final Result Performing Organization Address [facility] de Phone Number [facility] [phone] [address] Department of [employer] [place], [place] [id number] * (ABNORMAL) CBC without differential (10/20/2024 12:01 PM CDT) WBC 10.59(H) 3.80 - 9.90 K/cumm Hgb 13.4 11.9 - 15.5 g/dL [facility] Hct 44.0 35.6 - 45.5 % [facility] Plt 324 150 - 400 K/cumm [facility] MPV 10.6 9.1 - 12.3 fL [facility] RBC 4.69 3.90 - 5.20 M/cumm [facility] MCV 93.8 81.3 - 96.4 fL [facility] MCH 28.6 27.1 - 33.3 pg [facility] MCHC 30.5(L) 32.3 - 35.7 g/dL [facility] RDW CV 13.7 11.1 - 14.9 % [facility] RDW SD 46.3 35.7 - 48.1 fL [facility] NRBC abs 0.00 0.00 - 0.01 K/cumm [facility] Blood Venous blood specimen / Unknown 10/20/2024 12:01 PM CDT 10/20/2024 10:05 PM CDT Senait Toledo FIRST AID INSTRUCTOR LAB BLOOD ORDERABLES Final Result Performing Organization Address City/[facility]/ZIP Co de Phone Number [facility] [address] [address] [facility] [place] [address] * Lipase (10/20/2024 12:01 PM CDT) Lipase 22 10 - 99 Units/L Blood Venous blood specimen / Unknown 10/20/2024 12:01 PM CDT 10/20/2024 10:05 PM CDT Senait Toledo FIRST AID INSTRUCTOR LAB BLOOD ORDERABLES Final Result Performing Organization Address [facility] [[email or web address]] Co de Phone Number [facility] [address] [address] [place] [address] * Amylase (10/20/2024 12:01 PM CDT) Amylase 35 30 - 99 Units/L Blood 10/20/2024 12:0 1 PM CDT 10/20/2024 10:05 PM CDT Senait Toledo FIRST AID INSTRUCTOR LAB BLOOD ORDERABLES Final Result Performing Organization Address City/[facility]/ZIP Co de Phone Number KE[facility] [address] [address] [place] [address] * (ABNORMAL) Comprehensive metabolic panel (10/20/2024 12:01 PM CDT) Sodium 141 135 - 145 mmol/L Potassium, pl 4.0 3.3 - 4.9 mmol/L [facility] Chloride 104 97 - 110 mmol/L [facility] CO2 29 22 - 32 mmol/L [facility] Anion gap 8 2 - 15 mmol/L [facility] BUN 5(L) 6 - 25 mg/dL [facility] Creatinine 0.82 0.60 - 1.10 mg/dL [facility] Glucose 108 70 - 199 mg/dL [facility] Comment: Interpretive Data Fasting glucose >/= 126 [...] 12:01 PM CDT 10/20/2024 10:05 PM CDT us Senait Toledo NP LAB BLOOD ORDERABLES Final Result [facility] [address] [address] Department [place] [address] * eGFR (08/24/2024 10:05 AM [...] of Race in Diagnosing Kidney Disease, JASN 202). The CKD-EPI equation should not be used for patients with unstable renal function and has not been validated in children and those over 70. Current interpretive data was last reviewed 2021. Blood 08/24/2024 10:0 5 AM CDT 08/24/2024 9:59 PM CDT Damian Vides DC LAB BLOOD ORDERABLES Final Result [facility] [address] Department [place] [address] * Differential, auto (08/24/2024 10:05 AM CDT) Pathologist [facility] Neutrophil abs 4.6 1.5 - 6.5 K/cumm Imm gran abs 0.1 0.0 - 0.1 K/cumm [facility] Lymphocyte abs 1.9 0.8 - 3.3 K/cumm [facility] Monocyte abs 0.5 0.2 - 0.8 K/cumm [facility] Eosinophil abs 0.1 0.0 - 0.5 K/cumm [facility] Basophil abs 0.0 0.0 - 0.1 K/cumm [facility] Neutrophil pct 63.9 % [facility] Comment: Interpretive Data Percent cell count reference ranges are not reported, since discordance with absolute values may lead to misinterpretation of CBC data. Current Interpretive Data was last revised on 2017. Imm gran pct 0.8 % [facility] Comment: Interpretive Data Percent cell count reference ranges are not reported, since discordance with absolute values may lead to misinterpretation of CBC data. Current Interpretive Data was last revised on 2017. Lymphocyte pct 26.9 % [facility] Comment: Interpretive Data Percent cell count reference ranges are not reported, since discordance with absolute values may lead to misinterpretation of CBC data. Current Interpretive Data was last revised on 2017. Monocyte pct 6.8 % [facility] Comment: Interpretive Data Percent cell count reference ranges are not reported, since discordance with absolute values may lead to misinterpretation of CBC data. Current Interpretive Data was last revised on 2017. Eosinophil pct 1.0 % [facility] Comment: Interpretive Data Percent cell count reference ranges are not reported, since discordance with absolute values may lead to misinterpretation of CBC data. Current Interpretive Data was last revised on 2017. Basophil pct 0.6 % [facility] Comment: Interpretive Data Percent cell count reference ranges are not reported, since discordance with absolute values may lead to misinterpretation of CBC data. Current Interpretive Data was last revised on 2017. Blood 08/24/2024 10:0 5 AM CDT 08/24/2024 9:57 PM CDT Damian Vides CO LAB BLOOD ORDERABLES Final Result [facility] [address] [address] Department [place] [address] * Thyroglobulin antibodies (08/24/2024 10:05 AM CDT) Anti-thyroglobulin <1.8 <4.0 IUnits/mL [facility] Comment: ADDITIONAL INFORMATION PLEASE NOTE: The given thyroglobulin antibody (TgAb) reference cutoff of <4.0 IU/mL is for the evaluation of autoimmune thyroiditis. A cutoff of <1.8 IU/mL may be more suitable for the detection of potential thyroglobulin antibody (TgAb) interference in thyroglobulin immunoassays. The thyroglobulin antibody testing method is an immunoenzymatic assay manufactured by [employer] and performed on the [employer] DXI 800. Values obtained from different assay methods or kits may be different and cannot be used interchangeably. The results cannot be interpreted as absolute evidence for the presence or absence of malignant disease. Test Performed by: [facility] [address] [place] [address] Automatic Log Cut Off Sawyer: Jaciel Chase Ph.D.; CLIA# [id number] Blood 08/24/2024 10:0 5 AM CDT 08/24/2024 9:57 PM CDT [facility] LAB BLOOD ORDERABLES Final Result Performing Organization Address [facility] [[email or web address]] Co de Phone Number KE[facility] YUSUF [address] [address] [place] [address] [facility] * Iron profile w/ IBC (08/24/2024 10:05 AM CDT) Iron 87 35 - 145 mcg/dl TIBC 337 250 - 400 mcg/dL [facility] Transferrin saturation 26 20 - 50 % [facility] Blood 08/24/2024 10:0 5 AM CDT 08/24/2024 9:57 PM CDT Narrative [facility] - 08/24/2024 10:41 PM CDT Fax results to [phone] [facility] LAB BLOOD ORDERABLES Final Result Performing Organization Address City/[facility]/ZIP Co de Phone Number KENAN YUSUF [address] [address] [place] [address] * (ABNORMAL) CMV, IgG and IgM antibodies [...] or recent CMV infection. Testing performed by: [facility], [address] [place]., [address] CMV IgM Negative Negative [facility] Comment: Interpretive Data Negative - Negative CMV [...] (primary, reactivation, or reinfection). Testing performed by: [facility], [address] [place]., [address] Blood 08/24/2024 10:0 5 AM CDT 08/25/2024 10:09 AM CDT Damian Vides DC LAB MICROBIOLOGY - GENERAL ORDERABLES Final Result [facility] [address] Department [place] [address] * (ABNORMAL) CBC with auto differential (08/24/2024 10:05 AM CDT) WBC 7.1 3.8 - 9.9 K/cumm Hgb 13.0 11.9 - 15.5 g/dL [facility] Hct 41.2 35.6 - 45.5 % [facility] Plt 293 150 - 400 K/cumm [facility] MPV 11.1 9.1 - 12.3 fL [facility] RBC 4.45 3.90 - 5.20 M/cumm [facility] MCV 92.6 81.3 - 96.4 fL [facility] MCH 29.2 27.1 - 33.3 pg [facility] MCHC 31.6(L) 32.3 - 35.7 g/dL [facility] RDW CV 13.4 11.1 - 14.9 % [facility] RDW SD 45.9 35.7 - 48.1 fL [facility] NRBC abs 0.00 0.00 - 0.01 K/cumm [facility] Blood 08/24/2024 10:0 5 AM CDT 08/24/2024 9:57 PM CDT Narrative [facility] - 08/24/2024 10:08 PM CDT Fax results to [phone] tessy gaytan Damian Vides DC LAB BLOOD ORDERABLES Final Result [facility] [address] [address] Department [place] [address] * (ABNORMAL) Kenji-Ventura virus (EBV) antibody panel Blood Blood, Venous (08/24/2024 10:05 AM CDT) EBV nuclear Ab Positive(A) Negative Comment: Indicates the presence of detectable IgG antibody to EBV Nuclear Antigen. Testing performed by: [facility], [address] [place] [address]., [address] EBV VCA IgG Positive(A) Negative [facility] Comment: Indicates the presence of antibody; 90% of the adult population will have been infected with EBV sometime in the past. Testing performed by: [facility], [address] [place]., [address] EBV VCA IgM Negative Negative [facility] Comment: No detectable IgM antibody to EBV-VCA. A negative result indicates no current infection with EBV. If clinical suspicion of acute EBV infection is present, testing should be repeated after one week. Testing performed by: [facility], [address] [place]., [address] EBV interp Past Infection [facility] Comment:Testing performed by : [facility], [address] [place] [address]., [address] Blood Venous blood specimen / Unknown 08/24/2024 10:05 AM CDT 08/25/2024 10:07 AM CDT Narrative [facility] - 08/25/2024 12:12 PM CDT Fax results to [phone] [facility] LAB MICROBIOLOGY - GENERAL ORDERABLES Final Result Performing Organization Address City/[facility]/ZIP Co de Phone Number KENA[facility] YUSUF [address] [place] [address] * (ABNORMAL) Thyroid peroxidase antibody (TPO) (08/24/2024 10:05 AM CDT) Pathologist [facility] Anti Thyroid Peroxidase 96(H) <=34 IUnits/mL Comment: ATPO Interpretive Data Results may be up to 28% higher in patients receiving Itraconazole. Current interpretive data was last revised 2020. Testing performed by: [facility], [address] [place]., [address] Blood 08/24/2024 10:0 5 AM CDT 08/25/2024 10:12 AM CDT [facility] LAB BLOOD ORDERABLES Final Result Performing Organization Address [facility] de Phone Number KENAN YUSUF [address] [address] [place] [address] * (ABNORMAL) Parvovirus B19 antibody, IgG and IgM Blood (08/24/2024 10:05 AM CDT) Pathologist [facility] Parvovirus IgG Positive(A) Negative [facility] Parvovirus IgM Negative Negative [facility] YUSU[facility] Parvovirus B19 Interpretation See Footnote [facility] Comment: RESULT: Results suggest past infection. ADDITIONAL INFORMATION This test has been modified from the collator's instructions. Its performance characteristics were determined by [facility] in a manner consistent with CLIA requirements. This test has not been cleared or approved by the U.S. Food and Drug Administration. Test Performed by: [facility] - [address] [address] Automatic Log Cut Off Sawyer: Jaciel Chase Ph.D.; CLIA# [id number] Blood 08/24/2024 10:0 5 AM CDT 08/24/2024 4:18 PM CDT [facility] LAB MICROBIOLOGY - GENERAL ORDERABLES Final Result Performing Organization Address City/[facility] [[email or web address]] Co de Phone Number [facility] YUSUF [address] [address] [place] [address] [facility] * (ABNORMAL) Vitamin D 25 hydroxy (08/24/2024 10:05 AM CDT) Vitamin D 25-OH 99(H) 30 - 80 ng/mL Blood 08/24/2024 10:0 5 AM CDT 08/24/2024 9:57 PM CDT [facility] LAB BLOOD ORDERABLES Final Result Performing Organization Address [facility] [[email or web address]] Co de Phone Number [facility] YUSUF [address] [address] Department [employer] [place], [place] [id number] * Insulin, total (08/24/2024 10:05 AM CDT) Pathologist [facility] Insulin 16.5 2.6 - 25.0 mcIUnit/mL Comment:Testing performed by : [facility], [address] [facility], [place]., [address] Blood 08/24/2024 10:0 5 AM CDT 08/25/2024 10:12 AM CDT [facility] LAB BLOOD ORDERABLES Final Result Performing Organization Address City/[facility] [[email or web address]] Co de Phone Number KENAN YUSUF [address] [address] [facility] [employer] [place], [place] [phone] * T3, free (08/24/2024 10:05 AM CDT) Free T3 2.8 2.0 - 4.4 pg/mL Blood 08/24/2024 10:0 5 AM CDT 08/24/2024 9:57 PM CDT Narrative KENA[facility] Kunz 08/24/2024 10:41 PM CDT Fax results to [phone] [facility] LAB BLOOD ORDERABLES Final Result Performing Organization Address City/[facility]/ZIP Co de Phone Number KENAN MADELIN [address] [address] [facility] [place] [address] * TSH (08/24/2024 10:05 AM CDT) Thyroid Stimulating Hormone 3.34 0.30 - 4.20 mcIUnit/mL Blood Venous blood specimen / Unknown 08/24/2024 10:05 AM CDT 08/24/2024 9:57 PM CDT [facility] LAB BLOOD ORDERABLES Final Result Performing Organization Address [facility] [[email or web address]] Co de Phone Number KE[facility] MADELIN [address] [address] [facility] [place] [address] * (ABNORMAL) T4, free (08/24/2024 10:05 AM CDT) Free T4 0.87(L) 0.90 - 1.70 ng/dL Blood Venous blood specimen / Unknown 08/24/2024 10:05 AM CDT 08/24/2024 9:57 PM CDT [facility] LAB BLOOD ORDERABLES Final Result Performing Organization Address City/[facility]/ZIP Co de Phone Number KENAN MADELIN [address] [address] [facility] [place] [address] * Ferritin (08/24/2024 10:05 AM CDT) Ferritin 78 15 - 150 ng/mL Blood Venous blood specimen / Unknown 08/24/2024 10:05 AM CDT 08/24/2024 9:57 PM CDT Damian Vides DC LAB BLOOD ORDERABLES Final Result KENAN YUSUF [id number] [address] [place] [address] * (ABNORMAL) Lipid panel (08/24/2024 10:05 AM CDT) Cholesterol 216(H) 30 - 199 mg/dL Comment: [...] on 2018. HDL 49 >=40 mg/dL KENAN YUSUF Comment: Interpretive Data Ages [...] 2018. LDL, calculated 150(H) <=129 mg/dL KENAN YUSUF Comment: Interpretive Data Ages [...] NCEP Expert Panel. Circulation 2004;110:227 3. Ha Garcia et al. VANI Cardiol. 2019October 01;5(5):540-548. doi: 10.1001/jamacardio.2020.0013 Current Interpretive Data was last revised on 2024. Non-HDL Cholesterol 167 mg/dL KENAN YUSUF Comment: Interpretive Data Ages [...] last revised on 2018. Chol/HDL ratio 4 KENAN YUSUF Blood Venous blood specimen / Unknown 08/24/2024 10:05 AM CDT 08/24/2024 9:57 PM CDT Damian Vides DC LAB BLOOD ORDERABLES Final Result KENAN YUSUF [id number] [address] Department [place] [address] * Comprehensive metabolic panel (08/24/2024 10:05 AM CDT) Sodium 140 135 - 145 mmol/L Potassium, pl 4.0 3.3 - 4.9 mmol/L CERNER CH Chloride 104 97 - 110 mmol/L [facility] CO2 24 22 - 32 mmol/L [facility] Anion gap 12 2 - 15 mmol/L [facility] BUN 9 6 - 25 mg/dL [facility] Creatinine 0.85 0.60 - 1.10 mg/dL C[facility] CH Glucose 107 70 - 199 mg/dL CERNER CH Comment: Interpretive Data Fasting glucose >/= 126 [...] Vides DC LAB BLOOD ORDERABLES Final Result KENAN YUSUF [address] [address] Department [place] [address] * BLOOD MISC TO BURR (08/24/2024 12:00 AM CDT) Test name, chem [facility] ref Lab Misc See Footnote KENAN YUSUF Comment: Test Result Flag Unit RefValue Free Thyroxine Index(FTI), S Thyroxine Binding Capacity, 1.2 TBI 0.8 - 1.3 S Thyroxine, Total, S 7.3 mcg/dL 4.5 - 11.7 Free Thyroxine Index 6.1 mcg/dL 4.8 - 12.7 Test Performed by: [address] [address] [employer] Sawyer: Jaciel Chase Ph.D.; CLIA# [id number] Blood 08/24/2024 08/25/2024 12: 24 PM CDT Narrative KENAN - 08/27/2024 7:46 AM CDT FREE THRYROXINE INDEX Damian Vides DC LAB BLOOD ORDERABLES Final Result KENAN [address] [address] Department [place] [address] [facility] * BLOOD MISC TO BURR (08/24/2024 12:00 AM CDT) Test name, chem t4 [facility] ref Lab Misc See Footnote KENAN YUSUF Comment: Test Result Flag Unit RefValue T4 (Thyroxine), Total Only, 6.3 mcg/dL 4.5 - 11.7 S Test Performed by: [facility] [address] [place] [address] [employer] Sawyer: Jaciel Chase Ph.D.; CLIA# [id number] Blood 08/24/2024 08/25/2024 12: 22 PM CDT Narrative KENAN YUSUF - 08/27/2024 9:36 AM CDT t4 total Damian Vides CO LAB BLOOD ORDERABLES Final Result KENAN YUSUF [address] [address] Department [place] [address] [facility] * Diagnostic Mammogram Bilateral W [place] [...] PM - Electronically signed by Quinton Mistry M.D. MD: Report ID: [id number] Reading Location: [facility] us Gareth Polk MD IMG MAMMO PROCEDURES Final Res ult * Colonoscopy (06/26/2024 9:46 AM SHOP LEAD) Anatomical Region Laterality Modality Other Narrative Procedure Note Geena Lyle MD - 06/26/2024 9:46 AM CST [facility] GI ENDOSCOPY Patient Name: Bess Méndez Procedure Date: 06/26/2024 9:46 AM Date of : 1975 Admit Type: Outpatient Age: 49 Gender: Female Attending MD: Geena Lyle M.D. Room: [facility] ENDOSCOPY ROOM 05 Note Status: Finalized Procedure: [...] On: 06/26/2024 9:46 AM Recognized by the [place] [employer] for promoting quality in endoscopy us Geena Lyle MD ENDOSCOPY PROCEDURES Final Resul t * Pap and High Risk HPV, reflex to Genotyping (08/28/2021 11:38 AM CDT) Thin prep (Pap test) 08/28/2021 11:38 AM CDT 08/29/2021 11:38 AM CDT Narrative PATHOLOGY [facility] - 08/31/2021 5:56 PM CDT [facility] Department of Pathology [address] [place] [address] Final Report with Addendum Note to Patients: [...] the details. Patient Name: BESS MÉNDEZ Address: [address] [place] [address]- Gender: F : 1975 (Age: 46) Service: Laboratory Location: N : [id number] [facility] #: [id number] Patient Type: [facility] SPECIMEN Taken: 08/28/2021 Received: 08/29/2021 Accessioned:: 08/30/2021 Reported: 08/31/2021 Physician(s): Trevor Cantor M.D. [facility] Diagnosis: Source of Specimen: SCREENING THIN PREP [...] Electronically Reviewed and Signed Out By MARLEN Canada(ASCP) 08/30/2021 13:47:16 Specimen(s) Received: A: SCREENING [...] determined by the Surgical Pathology Department at [facility] as part of an ongoing quality associate program and in compliance with federally mandated [...] characteristics determined by the Surgical Pathology Department [facility]. It has not been cleared or approved by the U. S. Food and Drug Administration. Trevor Cantor MD LAB CYTOLOGY ORDERABLES Final Result [facility] from Last 3 Months or Most Recently Relevant to Health Maintenance Insurance BLUE ACC CHOICE OOS [employer] COVENTRY HMO/POS [place] [id number] MRA Care Teams Multiple Needle Stitcher Relationship Specialty Start Date End Date Nitin Villagran MD [address] [place] [address] PCP - General Family Medicine 08/10/23 Trevor Cantor MD [address] [place] [address] [place] [address] Consulting Physician Obstetrics and Gynecology 11/07/21 Yahaira Norwood PA [address] [place] [address] Physician Claims Account Specialist Family Medicine 08/10/23 eMndoza Odonnell MD [address] [place] [address] Consulting Physician Cardiovascular Disease 08/10/23
--- OUTSIDE RECORDS SUMMARY | 2024-11-04 10:29 | XMS_ITS | Patient Health Record ---
Author Organization [facility] Address [address] [place] [address] ANDRAE Kwon [address] Care Team Providers Care Exercise Planner Name Role Phone HANNAH CLEMENTS, YOCASTA Primary Care Provider Unavaila andry Dinh Austin Unavailable [phone] AWILDA IRVING PT Unavailable Unavailable ALLERGIES Allergen (clinical drug ingredient) Drug/Non Drug Allergy documented on EMR Reaction Allergy Type Onset Date Status erythromycin Erythromycin GI upset Drug Allergy A ctive Substance with sulfonamide structure and antibacterial mechanism of action (substance) Sulfa Antibiotics hives Drug Allergy Active tetracycline Tetracycline GI upset Drug Allergy A ctive REASON FOR REFERRAL No Information MEDICATIONS Medication SIG (Take, Route, Frequency, Duration) Notes Start Date End Date Status Metoprolol Succinate ER 25 MG Oral for 90 Active Cetirizine HCl 10 MG 1 tablet Orally Onc e a day for 30 day(s) Active Famotidine 20 MG 1 tablet at bedtime as needed Orally Once a day for 30 day(s) Active Metoprolol Succinate 25 MG 1 capsule Ora lly Once a day for 30 day(s) Active methylPREDNISolone 4 MG as directed Orally 024 Active Xanax 0.25 MG 1 tablet Orally 30 minutes prior to injection for 1 days 05/01/2023 Active Albuterol Sulfate HFA 108 (9 0 Base) MCG/ACT 1 puff as needed Inhalation every 4 hrs Active Ibuprofen 800 MG 1 tablet with food o r milk as needed Orally every 8 hrs Active tiZANidine HCl 2 MG 1 tablet as needed Orally Three times a day for 30 days 01/31/2023 Active PROBLEMS Problem Type ICD Code Onset Dates Problem Status W/U Status Risk SNOMED Code Notes Problem Fear of injections and transfusions (F40.231) Active confirmed Fear of medical treatment (256602263) Problem Sacroiliitis, not elsewhere classified (M46.1) Active confirmed Solitary sacroiliitis (617532840) Problem Spondylosis without myelopathy or radiculopathy, cervical region (M47.812) Active confirmed Cervical spondylosis without myelopathy (899712137) Problem Spondylosis without myelopathy or radiculopathy, lumbar region (M47.816) Active confirmed Lumbosacral spondylosis without myelopathy (65741811) Problem Spondylosis without myelopathy or radiculopathy, lumbosacral region (M47.817) Active confirmed Lumbosacral spondylosis without myelopathy (disorder) (27830742) Problem Intervertebral disc disorders with radiculopathy, lumbar region (M51.16) Active confirmed Radiculopathy d ue to lumbar intervertebral disc disorder (207731985918824) Problem Other intervertebral disc degeneration, lumbar region (M51.36) Active confirmed Degeneration of lumbar intervertebral disc (83312066) Problem Other intervertebral disc degeneration, lumbosacral region (M51.37) Active confirmed Degeneration of lumbosacral intervertebral disc (47710949) Problem Radiculopathy, cervical region (M54.12) Active confirmed Cervical radiculopathy (62259550) Problem Radiculopathy, lumbar region (M54.16) Active confirmed Lumbar radiculopathy (323609460) Problem Radiculopathy, lumbosacral region (M54.17) Active confirmed Lumbosacral radiculopathy (7727886) Problem Osseous stenosis of neural canal of lumbar region (M99.33) Active confirmed Spinal stenosis of lumbar region (61795094) Problem Intervertebral disc stenosis of neural canal of cervical region (M99.51) Active confirmed Spinal stenosis in cervical region (45032787) Problem Intervertebral disc stenosis of neural canal of lumbar region (M99.53) Active confirmed Spinal stenosis of lumbar region (02196521) Problem half-way (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 of anticoagulants (Z79.01) Active confirmed Long-term curre nt use of anticoagulant (565317664) Problem Cervical disc disorder at C5-C6 level with radiculopathy (M50.122) Active confirmed Cervical radiculopathy (98023165) PLAN OF TREATMENT No Information Insurance Providers Payer Name Payer Address Payer Phone Subscriber Number Group Number Insured Name Patient Relationship to Insured Coverage Start Date Coverage End Date [employer] [address] [place] [address] [id number] JUSTIN MÉNDEZ Self - patient is the insured [facility] [address] [place] [address] [id number] JUSTIN MÉNDEZ Self - patient is the insured MEDICAL (GENERAL) HISTORY Medical History History ICD Code Asthma Gastric ulcer GERD Hyperthyroidism Chronic Tachycardia Graves Disease Surgical History Surgery Date(Month/Year) Appendectomy 2005 Left L5-S1 microdiscectomy and foraminot shanel 2007
--- OUTSIDE RECORDS SUMMARY | 2024-11-04 10:30 | XMS_ITS ---
Author Organization [facility] Address [address] [place] [id number] Care Team Providers Care Hr Business Partner Name Role Phone HANNAH CLEMENTS, YOCASTA Primary Care Provider Stephanie RomanokateDinh baca Unavailable [phone] AWILDA IRVING PT Unavailable Unavailable ALLERGIES Allergen (clinical drug ingredient) Drug/Non Drug Allergy documented on EMR Reaction Allergy Type Onset Date Status erythromycin Erythromycin GI upset Drug Allergy A ctive Substance with sulfonamide structure and antibacterial mechanism of action (substance) Sulfa Antibiotics hives Drug Allergy Active tetracycline Tetracycline GI upset Drug Allergy A ctive REASON FOR VISIT follow up MEDICATIONS Medication SIG (Take, Route, Frequency, Duration) [...] to injection for 1 days 05/01/2023 Active Metoprolol Succinate 25 MG 1 capsule Ora lly Once a day for 30 day(s) Active Albuterol Sulfate HFA 108 (9 0 Base) MCG/ACT 1 puff as needed Inhalation every 4 hrs Active Ibuprofen 800 MG 1 tablet with food o r milk as needed Orally every 8 hrs Active tiZANidine HCl 2 MG 1 tablet as needed Orally Three times a day for 30 days 01/31/2023 Active Encounters Encounter Location Date Provider Diagnosis [facility] [address] [facility] [place] [address] 08/02/2023 Dinh Norman Radiculopathy, lumba r region M54.16 ; Sacroiliitis, [...] Fear of injections and transfusions F40.231 and joint terminal attack controller (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 of non-steroidal anti-inflammatories (NSAID) Z79.1 ASSESSMENTS Encounter Date Diagnosis Assessment Notes Treatment Notes Treatment Clinical Notes Section Notes 08/02/2023 Radiculopathy, lumbar region (ICD-10 - M54.16) 08/02/2023 Sacroiliitis, not elsewhere classified (ICD-10 - M46.1) 08/02/2023 Radiculopathy, lumbosacral region (ICD-10 - M54.17) 08/02/2023 Intervertebral disc disorders with radiculopathy, lumbar region (ICD-10 - M51.16) 08/02/2023 Intervertebral disc stenosis of neural canal of lumbar region (ICD-10 - M99.53) 08/02/2023 Osseous stenosis of neural canal of lumbar region (ICD-10 - M99.33) 08/02/2023 Other intervertebral disc degeneration, lumbar region (ICD-10 - M51.36) 08/02/2023 Other intervertebral disc degeneration, lumbosacral region (ICD-10 - M51.37) 08/02/2023 Spondylosis without myelopathy or radiculopathy, lumbar region (ICD-10 - M47.816) 08/02/2023 Spondylosis without myelopathy or radiculopathy, lumbosacral region (ICD-10 - M47.817) 08/02/2023 Radiculopathy, cervical region (ICD-10 - M54.12) 08/02/2023 Spondylosis without myelopathy or radiculopathy, cervical region (ICD-10 - M47.812) 08/02/2023 Cervical disc disorder at C5-C6 level with radiculopathy (ICD-10 - M50.122) 08/02/2023 Intervertebral disc stenosis of neural canal of cervical region (ICD-10 - M99.51) 08/02/2023 joint terminal attack controller (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 of anticoagulants (ICD-10 - Z79.01) 08/02/2023 Fear of injections and transfusions (ICD-10 - F40.231) 08/02/2023 joint terminal attack controller (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 of non-steroidal anti-inflammatorie s (NSAID) (ICD-10 - Z79.1) 08/02/2023 Other The above-named patient was evaluated in [...] dictated by ZACHARY Muniz PLAN OF TREATMENT Treatment Notes Assessment Notes Other The above-named darrel ent was evaluated [...] This note was dictated by ZACHARY Muniz Progress Notes * Examination Category Sub-Category Detail [...] patient's typical axial low back pain. Sacha's, Oracle's and Gaenslen's are positive bilaterally. There is [...] through C6-7 Assessment and Follow-up: Follow-up Plan documen adele:: Yes MIPS Quality 2020: MIPS Documented:: Compliant
[2024-11-04 10:39] VITALS: BP 108/67; PULSE 81; RESP 17; TEMP 36.3; O2SAT 98
--- NOTE | 2024-11-04 11:00 | ED_ITS ---
HPI - Abdominal Pain General Chief Complaint: Abdominal Pain Stated Complaint: Abdominal Pain History of Present Illness HPI narrative: Pt is a 49-year-old female who presents to urgent care with complaints of LLQ abdominal pain. She reports her pain started two days ago. Pt reports she went to her PCP yesterday, who performed bloodwork, a urinalysis, and an US. She reports her results were all normal besides a fatty liver. Pt denies any recent fevers, urinary symptoms, or chest pain. She reports she has had intermittent back pain associated with the LLQ pain. Pt's last bowel movement was this morning and it was less than her normal BMs. She endorses a history of Char's disease, asthma, and diverticulosis, and an appendectomy. Pt reports her last menstrual period was approximately 15 days ago. Related Data Home Medications ?Medication ?Instructions ?Recorded ?Confirmed ?Last Taken ?Type famotidine 20 mg tablet (Pepcid) 20 mg PO DAILY 05/20/20 10/20/24 Unknown History epinephrine 0.3 mg/0.3 mL 0.3 mg IM PRN PRN Allergic Reaction 07/17/23 10/20/24 Unknown History injection, auto-injector levonorgestrel (Mirena) See Rx Instructions .Route .COMPLEX 07/17/23 10/20/24 Unknown History metoprolol succinate 25 mg 25 mg PO DAILY 07/17/23 10/20/24 Unknown History tablet,extended release 24 hr cetirizine 10 mg capsule (Zyrtec) 10 mg PO DAILY PRN 07/24/23 10/20/24 Unknown History azelastine 137 mcg (0.1 %) nasal 137 mcg intranasal Q12H 12/30/23 10/20/24 Unknown History spray cholecalciferol (vitamin D3) 250 250 mcg PO DAILY 10/20/24 10/20/24 Unknown History mcg (10,000 unit) capsule iodine 150 mcg tablet mcg PO 10/20/24 10/20/24 Unknown History magnesium 200 mg tablet 200 mg PO DAILY 10/20/24 10/20/24 Unknown History Allergies Allergy/AdvReac Type Severity Reaction Status Date / Time cetyl alcohol AdvReac Mild RASH Verified 11/04/24 11:03 erythromycin base AdvReac Mild Rash Verified 11/04/24 11:03 paraben AdvReac Mild Rash Verified 11/04/24 11:03 propylene glycol AdvReac Mild Rash Verified 11/04/24 11:03 skin cleanser AdvReac Mild RASH Verified 11/04/24 11:03 soap AdvReac Mild Rash Verified 11/04/24 11:03 sodium lauryl sulfate AdvReac Mild RASH Verified 11/04/24 11:03 stearyl alcohol AdvReac Mild RASH Verified 11/04/24 11:03 Sulfa (Sulfonamide AdvReac Mild Rash Verified 11/04/24 11:03 Antibiotics) sulfanilamide AdvReac Mild Rash Verified 11/04/24 11:03 tetracycline AdvReac Mild Rash Verified 11/04/24 11:03 venom-wasp AdvReac Mild Redness of Verified 11/04/24 11:03 Skin Review of Systems Review of Systems: All systems reviewed & are unremarkable except as noted in HPI and below PMFSH Past Medical History Medical History Cat bite Rash Left shoulder pain Left leg pain Joint pain Flu-like symptoms Palpitations Presence of Mirena IUD (05/15/22) Dysphagia Facial numbness Encounter for vitamin deficiency screening COVID-19 Screen for colon cancer Anxiety about health Stress disorder, acute Chest pain Allergic reaction Chronic pain of both feet Chronic low back pain Chronic neck pain Vertigo Holter monitor, abnormal COVID-19 Elevated fasting glucose Screening for diabetes mellitus Hyperthyroidism Gastric ulcer GERD (gastroesophageal reflux disease) Asthma Peripheral neuropathy Surgical History Surgical History S/P breast biopsy, left History of lumbar surgery History of lumpectomy of left breast Hx of appendectomy Hx of tonsillectomy Family History Family History Grandparent Family history of lung cancer Diabetes mellitus Father No problems noted. Mother Gastrointestinal complaint Sibling Depression Other Hypertension Social History Social History Smoking status: Never smoker Second hand tobacco smoke exposure: Yes Alcohol intake: current Drinks per week: 1 Substance use: never Substance use type: does not use Do You Feel Safe in your Home?: Yes Lack of Transportation: No Lack of Food: Never True Current Housing: I Have Housing Concerned About Future Housing: No Difficulty Paying Gas/Electric Bills: No Difficulty Paying for Meds: No Currently Unemployed: YES Education: Associate Degree Difficulty w/ Childcare or Family Care: No Living arrangements: with family Additional living arrangements comments: Occupation/Education: 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 NECK: Supple. No adenopathy, no masses. RESPIRATORY: Airway patent, respirations nonlabored. Clear to auscultation bilaterally, no rales, rhonchi, wheezing. CARDIOVASCULAR: Regular rate and rhythm without murmurs, rubs, or gallops. Peripheral pulses 2+ and equal bilaterally. ABDOMINAL: Soft, tender LLQ with palpation, nondistended, no hepatosplenomegaly. Normoactive BS. MUSCULOSKELETAL: Moves all extremities. Strength/ROM intact without gross deformities. SKIN: Warm, dry, normal color. No rashes. Course Course Level of Care: Express Care Visit Vital Signs Vital signs: Vital Signs Temperature 36.3 C L 11/04/24 10:39 Pulse Rate 81 11/04/24 10:39 Respiratory Rate 17 11/04/24 10:39 Blood Pressure 108/67 11/04/24 10:39 Pulse Oximetry 98 11/04/24 10:39 Oxygen Delivery Room Air 11/04/24 10:39 Temperature 36.3 C L 11/04/24 10:39 Pulse Rate 81 11/04/24 10:39 Respiratory Rate 17 11/04/24 10:39 Blood Pressure 108/67 11/04/24 10:39 Pulse Oximetry 98 11/04/24 10:39 Oxygen Delivery Room Air 11/04/24 10:39 MDM - Abdominal Pain MDM Narrative Medical decision making narrative: Pt is a 49-year-old female who presents to urgent care with complaints of LLQ abdominal pain. She reports her pain started two days ago. Pt reports she went to her PCP yesterday, who performed bloodwork, a urinalysis, and an US. She reports her results were all normal besides a fatty liver. Pt denies any recent fevers, urinary symptoms, or chest pain. She reports she has had intermittent back pain associated with the LLQ pain. Pt's last bowel movement was this morning and it was less than her normal BMs. She endorses a history of Char's disease, asthma, and diverticulosis, and an appendectomy. Pt reports her last menstrual period was approximately 15 days ago. Diagnosis: abdominal pain Pt was advised to present to an ER for further evaluation and treatment, as she may require further abdominal imaging and other testing. She verbalized understanding and is in agreement with plan. Pt reports she would like to go to [place] [facility]. Reports was called by [employer] and given to Shabana Taveras RN. Accepting physician was Dr. Cazares. Pt will travel there by private vehicle. Differential Diagnosis Differential diagnosis: Likely abdominal pain, acute appendicitis, constipation, diverticulitis and small bowel obstruction Discharge Plan Discharge Clinical Impression: Abdominal pain, LLQ abdominal pain Patient Disposition: Acute Care Hospital Condition: Guarded Prognosis Instructions: Abdominal Pain (ED) Additional Instructions: Please proceed to [place] emergency department. The staff there are expecting you. Patient Language: Portuguese Prescriptions: No Action famotidine [Pepcid] 20 mg Tablet 20 mg PO DAILY epinephrine 0.3 mg/0.3 mL auto-injector 0.3 mg IM PRN PRN (Reason: Allergic Reaction) Rx Instructions: as a single dose; may repeat once metoprolol succinate 25 mg tablet extended release 24 hr 25 mg PO DAILY Mirena 21 mcg/24 hours (8 yrs) 52 mg Intrauterine Device See Rx Instructions .ROUTE .COMPLEX Rx Instructions: 21 mcg intrauterinely cholecalciferol (vitamin D3) 250 mcg (10,000 unit) capsule 250 mcg PO DAILY iodine 150 mcg tablet PO magnesium 200 mg tablet 200 mg PO DAILY Zyrtec 10 mg capsule 10 mg PO DAILY PRN azelastine 137 mcg (0.1 %) spray,non-aerosol 137 mcg intranasal Q12H Rx Instructions: administer into each nostril albuterol sulfate 90 mcg/actuation HFA aerosol inhaler 2 puff INHALATION Q4H PRN (Reason: shortness of breath or wheezing) Qty: 3 0RF Follow-up/Referrals: Nitin Villagran MD [Primary Care Provider] - Time of Disposition: 11:21
== END 2024-11-04 11:13 | disposition short-term general hospital (02) ==
PROVIDERS: Emergency Provider Registered Nurse; PCP Family Medicine
DX: R10.32 Left lower quadrant pain (principal); E06.3 Autoimmune thyroiditis; J45.909 Unspecified asthma, uncomplicated; E05.90 Thyrotoxicosis, unspecified without thyrotoxic crisis or storm; K21.9 Gastro-esophageal reflux disease without esophagitis; G62.9 Polyneuropathy, unspecified; Z86.16 Personal history of COVID-19
CPT/HCPCS: 99212; G0463

== ENCOUNTER 2025-03-02 12:50 | Outpatient (CLI) | payer OTHER, SELFPAY ==
--- OUTSIDE RECORDS SUMMARY | 2025-03-02 12:58 | XMS_ITS | Patient Health Record ---
Author Organization [facility] Address [address] [place] [address] ANDRAE Kwon [address] Care Team Providers Care Slubber Operator Name Role Phone HANNAH CLEMENTS, YOCASTA Primary Care Provider Saraha andry Dinh Austin Unavailable [phone] AWILDA IRVING PT Unavailable Unavailable ALLERGIES Allergen [...] (F40.231) Active confirmed Fear of medical treatment (680034187) Problem Sacroiliitis, not elsewhere classified (M46.1) Active confirmed Solitary sacroiliitis (239393912) Problem Spondylosis without myelopathy or radiculopathy, cervical region (M47.812) Active confirmed Cervical spondylosis without myelopathy (396409282) Problem Spondylosis without myelopathy or radiculopathy, lumbar region (M47.816) Active confirmed Lumbosacral spondylosis without myelopathy (63575991) Problem Spondylosis without myelopathy or radiculopathy, lumbosacral region (M47.817) Active confirmed Lumbosacral spondylosis without myelopathy (disorder) (18504761) Problem Intervertebral disc disorders with radiculopathy, lumbar region (M51.16) Active confirmed Radiculopathy d ue to lumbar intervertebral disc disorder (080013892391373) Problem Other intervertebral disc degeneration, lumbar region (M51.36) Active confirmed Degeneration of lumbar intervertebral disc (54307426) Problem Other intervertebral disc degeneration, lumbosacral region (M51.37) Active confirmed Degeneration of lumbosacral intervertebral disc (64883348) Problem Radiculopathy, cervical region (M54.12) Active confirmed Cervical radiculopathy (21829875) Problem Radiculopathy, lumbar region (M54.16) Active confirmed Lumbar radiculopathy (017368005) Problem Radiculopathy, lumbosacral region (M54.17) Active confirmed Lumbosacral radiculopathy (9331813) Problem Osseous stenosis of neural canal of lumbar region (M99.33) Active confirmed Spinal stenosis of lumbar region (53769793) Problem Intervertebral disc stenosis of neural canal of cervical region (M99.51) Active confirmed Spinal stenosis in cervical region (46277921) Problem Intervertebral disc stenosis of neural canal of lumbar region (M99.53) Active confirmed Spinal stenosis of lumbar region (02982265) Problem food and drug research scientist (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 of anticoagulants (Z79.01) Active confirmed Long-term curre nt use of anticoagulant (552317427) Problem Cervical disc disorder at C5-C6 level with radiculopathy (M50.122) Active confirmed Cervical radiculopathy (31370836) PLAN OF TREATMENT No Information Insurance Providers Payer Name Payer Address Payer Phone Subscriber Number Group Number Insured Name Patient Relationship to Insured Coverage Start Date Coverage End Date [employer] [address] [place] [address] [id number] JUSTIN MÉNDEZ Self - patient is the insured [facility] [address] [place] [address] [id number] JUSTIN MÉNDEZ Self - patient is the insured MEDICAL (GENERAL) HISTORY Medical History History ICD Code Asthma Gastric ulcer GERD Hyperthyroidism Chronic Tachycardia Graves Disease Surgical History Surgery Date(Month/Year) Appendectomy 2005 Left L5-S1 microdiscectomy and foraminot shanel 2007
--- OUTSIDE RECORDS SUMMARY | 2025-03-02 12:58 | XMS_ITS | Continuity of Care Document ---
Author Organization [facility] Address [address] [place] [address] Insurance Providers Payer Plan Claims Address Claims Phone Policy Number Group Number Relation Employer Guarantor Name Guarantor Guarantor Address Guarantor Phone [employer] 96764 [id number] Self Bess Dean 1975 [id number] [place] [address] [employer] [address], [place] [address] tel:[phone] [id number] Self Bess Dean 1975 [id number] [place] [address] [facility] [address], [place] [address] tel:[phone] [id number] Self Bess Dean 1975 [id number] [place] [address] Problems Unknown Problems Results No Results Allergies, adverse reactions, alerts No known allergies and adverse reactions Medications No administered medications reported Vital Signs Date Vital Result Comment 01/18/2025 Body Height (8302-2) 1.4929264698973 m Body Weight (53488-7) 87.293316743361 kg Body Mass Index (22990-4) 31.15 kg/m2 Social History No smoking Hx information available
--- OUTSIDE RECORDS SUMMARY | 2025-03-02 12:58 | XMS_ITS | Clinical Summary ---
Author Organization [place] [address] [facility] Address [facility] [place] [address] Care Team Providers Care Nursing Support Worker Name Role Phone Trevor Cantor MD Unavailable [phone] Nitin Villagran MD Primary Care Provider [phone] Yahaira Norwood Unavailable [phone] Melani Odonnell MD Unavailable Allergies Active Allergy Reactions [...] MOUTH NIGHTLY 90 tablet 3 4 Active amoxicillin-cla vulanate (AUGMENTIN) 875-125 mg per tablet Take 1 tablet by mouth every 12 (twelve) hours 14 tablet 5 Active Additional Information Patient not taking.Reported on 01/15/2025 EPINEPHrine 0.3 mg/0.3 mL auto-injection syringe Inject 0.3 mL (0.3 mg total) under the skin as needed for anaphylaxis 5 Active triamcinolone (KENALOG) 0.1 % ointmentIndicat ions:Bee sting, accidental or unintentional, initial encounter Apply topically 2 (two) times a day for 10 days 30 g 5 Active Active Problems Problem Noted Date Diagnosed Date ELLIOTT (obstructive sleep apnea) 01/06/2024 Assessment & Plan (07/06/2024 3:43 PM NURSE MIDWIFE/CLINICAL INSTRUCTOR): The patient continue to wear CPAP auto titrating range 5-20 cm water pressure while sleeping. Her DME is [facility]. I did send an order over for the patient to be refitted for her mask. Assessment & Plan (01/06/2024 10:19 AM CDT): The patient is benefitting from the auto titrating CPAP unit with a range of 5- 20 cm water pressure for ongoing symptoms of ELLIOTT. Her DME supplier is [facility] home care services. She will follow [...] (05/04/2022): Added automatically from request for surgery [id number] Palpitations 10/03/2021 COVID-19 10/03/2021 Dizziness 10/03/2021 Precordial [...] Encounters Date Type Department Care Team Description 02/15/2025 11:00 AM CDT - 02/15/2025 11:59 PM CDT Hospital Encounter [facility] Medical Office [facility] [address] [address] Breast pain Discharge Disposition: Discharge to home or self care 02/15/2025 10:23 AM CDT - 02/15/2025 11:59 PM CDT Hospital Encounter [facility] Medical Office [facility] [address] [address] Follow-up examination of abnormal mammogram Discharge Disposition: Discharge to home or self care 01/15/2025 12:30 PM CDT Office Visit [facility] at [address] [address] Madelin Diaz NP Bee sting, accidental or unintentional, initial encounter (Primary Dx) 01/06/2025 Telephone GENERIC EXTERNAL DATA DEPARTMENT Reina Meyers NP 01/01/2025 11:40 AM CDT - 01/01/2025 11:59 PM CDT Hospital Encounter [address] [address] Mixed hyperlipidemia Discharge Disposition: Discharge to home or self care 01/01/2025 11:30 AM CDT Lab [facility] Outpatient Lab at [address] [address] Mixed hyperlipidemia (Primary Dx) from Last 3 Months Immunizations Immunization Administration Dates Next Due Pfizer SARS-CoV-2 Monovalent Vaccination (12+ Yrs) PURPLE 12/16/2020 Tdap 03/31/2016 Surgical History Surgery Date Site/Laterality Comments [place] CAUTERY CERVIX CRYOCAUTER Y INITIAL/REPEAT Cervix Cryosurgery - 2006-x2 (Added by TW Conv) LASIK MOLE REMOVAL MICRODISCECTOMY APPENDECTOMY TONSILLECTOMY AND ADENOIDECTOMY GYNECOLOGIC CRYOSURGERY BREAST CYST EXCISION Left 1997 benign SPINE SURGERY lumbar BREAST BIOPSY 01/04/2023 [...] Grandfather Dinh Heart attack Paternal Grandfather Dinh PA Heart disease Paternal Grandfather Dinh Hyperlipidemia Paternal [...] drink containing alc ohol? Monthly or less 11/05/2024 Q2: How many drinks containi ng alcohol do you have on a typical day when you are drinking? 1 or 2 11/05/2024 Q3: How often do you have si x or more drinks on one occasion? Never 11/05/2024 PHQ-2 Answer Date Recorded PHQ-2 Total Score 0 01/03/2021 Personal Safety Answer Date Recorded Have you ever been in or are you currently in a harmful physical or emotional relationship or is someone making you feel afraid or unsafe? Denies 11/19/2024 Comments No Sex and Gender Information Value Date Recorded Sex Assigned at Not on file Legal Sex Female 7:52 AM NURSE MIDWIFE/CLINICAL INSTRUCTOR Gender Identity Female 04/25/2020 4:36 PM NURSE MIDWIFE/CLINICAL INSTRUCTOR Sexual Orientation Straight 04/25/2020 4: 36 PM NURSE MIDWIFE/CLINICAL INSTRUCTOR Obstetrics History Para Term AB IAB SAB Ectopic Multiple Livin g Live Births 1 1 1 Date Outcome GA Total Labor Labor/2nd/3rd Weight Sex Type Anes PTL Brinda A1 A5 Name Clin Term Comments Last Filed Vital Signs Vital Sign Reading Time Taken Comments Blood Pressure 127/79 01/15/2025 12:40 PM CDT Pulse 81 01/15/2025 12:40 PM CDT Temperature 36.8 C (98.2 F) 01/15/2025 12:40 PM CDT Respiratory Rate 18 01/15/2025 12:40 PM CDT Oxygen Saturation 99% 01/15/2025 12:40 PM CDT Inhaled Oxygen Concentration - - Weight 87.3 kg (192 lb 6.4 oz) 01/15/2025 12:40 PM CDT Height 167.6 cm (5' 5.98) 01/15/2025 12:40 PM C DT Body Mass Index 31.07 01/15/2025 12:40 PM CDT Plan of Treatment Health Maintenance Due Date Last Done Comments Albumin Creatinine Ratio, Urine 1975 Hepatitis C Screening 1975 Dilated Eye Exam 1975 Foot Exam 1975 Hepatitis B Screening 1994 Pneumococcal vaccine <65 (1 of 2 - PCV) 1995 Depression Screening 01/03/2022 01/03/2021 Cervical Cancer Screening 08/28/2022 08/28/2021 Regular Well Visit/Exam 18-64 08/01/2024 08/02/2023, 08/28/2021 Covid-19 Vaccine (3 - 2024-2 6 season) 2025 01/06/2021, 12/16/2020 Influenza Vaccine (#1) 2025 04/02/2023, 2021 Hemoglobin A1C 07/04/2025 01/01/2025 Breast Cancer Screening-Mammogram 08/14/2025 08/14/2024, 07/10/2023, 12/14/2022, Additional history exists Lipid Panel 01/01/2026 01/01/2025, 0309/2024, 03/26/2023, Additional history exists eGFR 01/01/2026 01/01/2025, 06/0 09/2024, 10/20/2024, Additional history exists Colon Cancer Screening-Colonoscopy 06/26/20342024 DTaP/Tdap/Td Vaccine (3 - Td or Tdap) 09/01/2034 09/01/2024, 03/31/2016 Medical Devices Implanted Type Area Binder Chainstitch Device Identifier Shelf Expiration Date Model / Serial / Lot Contratan.do [facility] Marker Biospy Site Mini Cork Shape [employer] [place] - [id number] Implanted:Qty: 1 on 01/04/2023 by Gareth Polk MD at [facility] Left: Breast Contratan.do [facility] [id number] 03/27/2023 [facility] / / [id number] Procedures Procedure Name Priority Date/Time Associated Diagnosis Comments US BREAST RIGHT LIMITED Schedule Routine, Read Routine (OP Routine) 02/15/2025 11:20 AM CDT Breast pain DIAGNOSTIC MAMMOGRAM RIGHT W RAFITA Schedule Routine, Read Routine (OP Routine) 02/15/2025 10:43 AM CDT Follow-up examination of abnormal mammogram EGFR Routine 01/01/2025 11:40 AM CDT COMPREHENSIVE METABOLIC PANEL Routine 01/01/2025 11:40 AM CDT LIPID PANEL Routine 01/01/2025 11:40 AM CDT Mixed hyperlipidemia TSH Routine 01/01/2025 11:40 AM CDT Mixed hyperlipidemia HEMOGLOBIN A1C Routine 01/01/2025 11:40 AM CDT Mixed hyperlipidemia DIAGNOSTIC MAMMOGRAM BILATERAL W RAFITA Schedule Routine, Read Routine (OP Routine) 08/14/2024 3:16 PM CDT Category 3 mammography result with short follow-up interval suggested for probably benign finding COLONOSCOPY 06/26/2024 9:46 AM NURSE MIDWIFE/CLINICAL INSTRUCTOR PAP AND HIGH RISK HPV, REFLEX TO GENOTYPING Routine 08/28/2021 11:38 AM CDT Well woman exam from Last 3 Months or Most Recently Relevant to Health Maintenance Results * US Breast Right Limited (02/15/2025 11:20 AM CDT) Anatomical Region Laterality Modality Breast Right Ultrasound 02/15/2025 12:3 4 PM CDT Impressions 02/15/2025 12:34 PM CDT No imaging findings to suggest malignancy are seen. The patient may return to screening mammography as per ACR guidelines. OVERALL FINAL ASSESSMENT: [id number] Electronically signed by: Jacquelin Soriano M.D. Narrative 02/15/2025 12:34 PM CDT EXAMINATION: RIGHT DIGITAL DIAGNOSTIC MAMMOGRAM AND DIGITAL BREAST TOMOSYNTHESIS; RIGHT BREAST SONOGRAM HISTORY: Follow-up. Mild trauma to the 10-11 o'clock region, marked with a BB by the patient. COMPARISON: Studies dating back to 2021 TECHNIQUE: Full field digital mammographic views of the right breast(s) were performed, including computer aided detection (CAD) and digital breast tomosynthesis (DBT). Directed ultrasound evaluation of the right breast(s) was performed. BREAST PARENCHYMAL COMPOSITION: There are scattered areas of fibroglandular density. MAMMOGRAM FINDINGS: There is no persistent asymmetry in the area previously described. There are no suspicious masses. Several areas of calcification in the upper outer quadrant show dependent layering on lateral views, consistent with milk of calcium in microcysts. No suspicious calcifications are seen. There is no unexplained architectural distortion. There is no skin thickening seen. There are no mammographically abnormal lymph nodes seen in the axillae or elsewhere. ULTRASOUND FINDINGS: No cystic or solid masses are seen in the area of trauma indicated by the patient. Gareth Polk MD IMG MAMMO PROCEDURES Final Res ult * Diagnostic Mammogram Right W Rafita (02/15/2025 10:43 AM CDT) Anatomical Region Laterality Modality Breast Right Mammography 02/15/2025 12:3 4 PM CDT Impressions 02/15/2025 12:34 PM CDT No imaging findings to suggest malignancy are seen. The patient may return to screening mammography as per ACR guidelines. OVERALL FINAL ASSESSMENT: [id number] Electronically signed by: Jacquelin Soriano M.D. Narrative 02/15/2025 12:34 PM CDT EXAMINATION: RIGHT DIGITAL DIAGNOSTIC MAMMOGRAM AND DIGITAL BREAST TOMOSYNTHESIS; RIGHT BREAST SONOGRAM HISTORY: Follow-up. Mild trauma to the 10-11 o'clock region, marked with a BB by the patient. COMPARISON: Studies dating back to 2021 TECHNIQUE: Full field digital mammographic views of the right breast(s) were performed, including computer aided detection (CAD) and digital breast tomosynthesis (DBT). Directed ultrasound evaluation of the right breast(s) was performed. BREAST PARENCHYMAL COMPOSITION: There are scattered areas of fibroglandular density. MAMMOGRAM FINDINGS: There is no persistent asymmetry in the area previously described. There are no suspicious masses. Several areas of calcification in the upper outer quadrant show dependent layering on lateral views, consistent with milk of calcium in microcysts. No suspicious calcifications are seen. There is no unexplained architectural distortion. There is no skin thickening seen. There are no mammographically abnormal lymph nodes seen in the axillae or elsewhere. ULTRASOUND FINDINGS: No cystic or solid masses are seen in the area of trauma indicated by the patient. us Gareth Polk MD IMG MAMMO PROCEDURES Final Res ult * eGFR (01/01/2025 11:40 AM CDT) eGFR 86 >=60 mL/min/1. 73 m2 Comment: Interpretive Data [...] interpretive data was last reviewed 2021. Blood 01/01/2025 11:4 0 AM CDT 01/04/2025 9:58 AM CDT us Melani Odonnell MD LAB BLOOD ORDERABLES Final Resul t Performing Organization Address City/[facility]/ZIP Co de Phone Number [facility] [address] Department [place] [address] * TSH (01/01/2025 11:40 AM CDT) Pathologist [facility] Thyroid Stimulating Hormone 2.35 0.30 - 4.20 mcIUnit/mL Blood Venous blood specimen / Unknown 01/01/2025 11:40 AM CDT 01/04/2025 9:47 AM CDT Narrative KENAN YUSUF - 01/04/2025 10:23 AM CDT Fax results to [phone] melani Corado Provider Result Type Result Stat us Not In File Miscellaneous LAB BLOOD ORDERABLES F inal Result Performing Organization Address [facility] Co de Phone Number [facility] [address] [address] Department [place] [address] * (ABNORMAL) Hemoglobin A1c (01/01/2025 11:40 AM CDT) Hgb A1C 6.2(H) 4.0 - 5.6 % Estimated Average Glucose 131 mg/dL KENAN YUSUF Comment: The ADA recommends reporting an estimated Average Glucose (eAG) with all Hemoglobin A1c results using the equation derived from a study of 507 normal and diabetic adults. Minority populations were underrepresented and children were not included. (Diabetes Care 31:4052-8755, 2008). The eAG is not equivalent to a fasting glucose. Blood Venous blood specimen / Unknown 01/01/2025 11:40 AM CDT 01/04/2025 9:47 AM CDT Narrative KENAN YUSUF - 01/04/2025 10:08 AM CDT Fax results to [phone] melani Odonnell us Not In File Miscellaneous LAB BLOOD ORDERABLES F inal Result KENAN [address] Department [place] [address] * (ABNORMAL) Lipid panel (01/01/2025 11:40 AM CDT) Cholesterol 211(H) 30 - 199 mg/dL Comment: Interpretive Data [...] Data was last revised on 2018. Triglycerides 117 <=149 mg/dL KENAN YUSUF Comment: Interpretive Data [...] Data was last revised on 2018. HDL 37(L) >=40 mg/dL KENAN YUSUF Comment: Interpretive Data [...] was last revised on 2018. LDL, calculated 153(H) <=129 mg/dL KENAN Comment: Interpretive Data Ages [...] 3. Ha Garcia et al. VANI Cardiol. 2020 October 01;5(5):540-548. doi: 10.1001/jamacardio.2020.0013 Current Interpretive Data was last revised on 2024. Non-HDL Cholesterol 174 mg/dL KENAN Comment: Interpretive Data Ages < [...] was last revised on 2018. Chol/HDL ratio 6 KENAN Blood Venous blood specimen / Unknown 01/01/2025 11:40 AM CDT 01/04/2025 9:47 AM CDT Narrative KENAN CH - 01/04/2025 10:23 AM CDT Fax results to [phone] melani Odonnell us Not In File Miscellaneous LAB BLOOD ORDERABLES F inal Result KENAN [address] [address] Department [place] [address] * Comprehensive metabolic panel (01/01/2025 11:40 AM CDT) Sodium 138 135 - 145 mmol/L Potassium, pl 4.6 3.3 - 4.9 mmol/L CERNER CH Chloride 104 97 - 110 mmol/L [facility] CO2 26 22 - 32 mmol/L [facility] Anion gap 8 2 - 15 mmol/L [facility] BUN 7 6 - 25 mg/dL [facility] Creatinine 0.84 0.60 - 1.10 mg/dL [facility] Glucose 101 70 - 199 mg/dL [facility] Comment: [...] - 1.2 mg/dL [facility] Protein, pl 7.2 6.5 - 8.5 g/dL [facility] Albumin 4.4 3.5 - 5.0 g/dL [facility] Alk phos 85 40 - 130 Units/L [facility] ALT 34 7 - 45 Units/L [facility] AST 27 10 - 45 Units/L [facility] Blood 01/01/2025 11:4 0 AM CDT 01/04/2025 9:46 AM CDT us Melani Odonnell MD LAB BLOOD ORDERABLES Final Resul t KENAN YUSUF [address] [address] Department [place] [address] * Diagnostic Mammogram Bilateral W Rafita (08/14/2024 [...] by Quinton Mistry M.D. MD: Report ID: [id number] Reading Location: [facility] us Gareth Polk MD IMG MAMMO PROCEDURES Final Res ult * Colonoscopy (06/26/2024 9:46 AM NURSE MIDWIFE/CLINICAL INSTRUCTOR) Anatomical Region Laterality Modality Other Narrative Procedure Note Geena Lyle MD - 06/26/2024 9:46 AM CST [facility] ENDOSCOPY Patient Name: Bess Méndez Procedure Date: 06/26/2024 9:46 AM Date of : 1975 Admit Type: Outpatient Age: 49 Gender: Female Attending MD: Geena Lyle M.D. Room: [facility] ENDOSCOPY ROOM 05 Note Status: [...] On: 06/26/2024 9:46 AM Recognized by the [place] [employer] for promoting quality in endoscopy us Geena Lyle MD ENDOSCOPY PROCEDURES Final Resul t * Pap and High Risk HPV, reflex to Genotyping (08/28/2021 11:38 AM CDT) Thin prep (Pap test) 08/28/2021 11:38 AM CDT 08/29/2021 11:38 AM CDT Narrative PATHOLOGY [facility] - 08/31/2021 5:56 PM CDT [facility] Department of Pathology [address] [place] [address] Final Report with Addendum Note to Patients: [...] the details. Patient Name: BESS MÉNDEZ Address: [address] [place] [address]- Gender: F : 1975 (Age: 46) Service: Laboratory Location: [facility] #: [id number] Patient Type: [facility] SPECIMEN Taken: 08/28/2021 Received: 08/29/2021 Accessioned:: 08/30/2021 Reported: 08/31/2021 Physician(s): Trevor Cantor M.D. [facility] Diagnosis: Source of Specimen: SCREENING THIN PREP IMAGED PAP w/ HPV Specimen Adequacy: - Satisfactory for evaluation; endocervical/transformation zone component present General Category: - Negative for intraepithelial lesion or malignancy MARLEN Holguin(ASCP) Report Electronically Reviewed and Signed Out By ISREAL HolguinASCP) 08/31/2021 17:56:25 Addenda: HPV Test Interpretation NEGATIVE for types 16, 18, 31, 33, 35, 39, 45, 51, 52, 56, 58, 59, 66 and 68. Test performed utilizing Gen-Probe Aptima assay. MARLEN Canada(ASCP) Report Electronically Reviewed and Signed Out By ISREAL CanadaASCP) 08/30/2021 13:47:16 Specimen(s) Received: A: SCREENING THIN [...] determined by the Surgical Pathology Department at [facility] as part of an ongoing quality worker program and in compliance with federally mandated [...] characteristics determined by the Surgical Pathology Department [facility]. It has not been cleared or approved by the U. S. Food and Drug Administration. Trevor Cantor MD LAB CYTOLOGY ORDERABLES Final Result [facility] from Last 3 Months or Most Recently Relevant to Health Maintenance Insurance [place] [id number] [place] [id number] [facility] [place] [id number] Care Teams Nursing Support Worker Relationship Specialty Start Date End Date Nitin Villagran MD [address] [place] [address] PCP - General Family Medicine 08/10/23 Trevor Cantor MD [address] [place] [address] Consulting Physician Obstetrics and Gynecology 11/07/21 Yahaira Norwood PA [address] [place] [address] Physician Capacitor Inspector Family Medicine 08/10/23 Melani Odonnell MD [address] [place] [address] Consulting Physician Cardiovascular Disease 08/10/23
--- NOTE | 2025-03-02 14:00 | NEURO_ITS ---
Impression: # Non-diabetic complains of numbness of hands. ? # Mild bilateral Carpal Tunnel Syndrome. ? # Bilateral ulnar neuropathy across the elbows, right more than left. ? # Normal needle/EMG exam. Nerve Conduction Studies ?Stim Site NR Peak (ms) P-T Amp (?V) Site1 Site2 Delta-P (ms) Dist (cm) Emmanuel (m/s) Left Median Anti Sensory (2-3nd Digit) Wrist ? 4.0 10.4 Wrist 2-3nd Digit 4.0 14.0 35 Wrist ? 3.9 11.3 Wrist 2-3nd Digit 4.0 14.0 35 Right Median Anti Sensory (2-3nd Digit) Wrist ? 4.3 9.9 Wrist 2-3nd Digit 4.3 14.0 33 Wrist ? 4.6 9.8 Wrist 2-3nd Digit 4.3 14.0 33 Left Radial Anti Sensory (Base 1st Digit) Wrist ? 1.5 16.2 Wrist Base 1st Digit 1.5 0.0 Right Radial Anti Sensory (Base 1st Digit) Wrist ? 1.8 15.7 Wrist Base 1st Digit 1.8 0.0 Left Ulnar Anti Sensory (5th Digit) Wrist ? 2.3 39.2 Wrist 5th Digit 2.3 14.0 61 Right Ulnar Anti Sensory (5th Digit) Wrist ? 2.2 37.6 Wrist 5th Digit 2.2 14.0 64 ?Stim Site NR Onset (ms) O-P Amp (mV) Site1 Site2 Delta-0 (ms) Dist (cm) Emmanuel (m/s) Left Median Motor (Abd Poll Brev) Wrist ? 4.2 5.8 Elbow Wrist 4.3 26.0 60 Elbow ? 8.5 5.6 Right Median Motor (Abd Poll Brev) Wrist ? 4.1 6.4 Elbow Wrist 4.8 26.0 54 Elbow ? 8.9 3.8 Left Ulnar Motor (Abd Dig Minimi) Wrist ? 2.8 5.4 A Elbow Wrist 5.2 29.0 56 A Elbow ? 8.0 3.8 B Elbow Wrist 3.3 20.0 61 B Elbow ? 6.1 3.9 Right Ulnar Motor (Abd Dig Minimi) Wrist ? 1.9 7.8 A Elbow Wrist 5.1 28.0 55 A Elbow ? 7.0 7.0 B Elbow Wrist 3.3 19.0 58 B Elbow ? 5.2 7.6 F Wave Studies ?NR F-Lat (ms) L-R F-Lat (ms) Left Median (Mrkrs) (Abd Poll Brev) ? 28.59 1.48 Right Median (Mrkrs) (Abd Poll Brev) ? 27.11 1.48 Left Ulnar (Mrkrs) (Abd Dig Min) ? 24.70 0.01 Right Ulnar (Mrkrs) (Abd Dig Min) ? 24.69 0.01 Electromyography ?Side Muscle Nerve Root Ins Act Fibs Amp Dur Recrt Comment Right 1stDorInt Ulnar C8-T1 Nml Nml Nml Nml Nml Right Ext Indicis Radial (Post Int) C7-8 Nml Nml Nml Nml Nml Right Ext Digitorum Radial (Post Int) C7-8 Nml Nml Nml Nml Nml Right BrachioRad Radial C5-6 Nml Nml Nml Nml Nml Right PronatorTeres Median C6-7 Nml Nml Nml Nml Nml Right Abd Poll Brev Median C8-T1 Nml Nml Nml Nml Nml Right ABD Dig Min Ulnar C8-T1 Nml Nml Nml Nml Nml Right FlexPolLong Median (Ant Int) C7-8 Nml Nml Nml Nml Nml Right Abd Poll Long Radial (Post Int) C7-8 Nml Nml Nml Nml Nml Left 1stDorInt Ulnar C8-T1 Nml Nml Nml Nml Nml Left Ext Indicis Radial (Post Int) C7-8 Nml Nml Nml Nml Nml Left Ext Digitorum Radial (Post Int) C7-8 Nml Nml Nml Nml Nml Left BrachioRad Radial C5-6 Nml Nml Nml Nml Nml Left PronatorTeres Median C6-7 Nml Nml Nml Nml Nml Left Abd Poll Brev Median C8-T1 Nml Nml Nml Nml Nml Left ABD Dig Min Ulnar C8-T1 Nml Nml Nml Nml Nml Left FlexPolLong Median (Ant Int) C7-8 Nml Nml Nml Nml Nml Left Abd Poll Long Radial (Post Int) C7-8 Nml Nml Nml Nml Nml
== END 2025-03-02 12:51 | disposition home or self-care (01) ==
LOC: ANHNEURO 12:52
PROVIDERS: PCP Family Medicine; Visit Provider Nurse Practitioner Adult Health
DX: G56.03 Carpal tunnel syndrome, bilateral upper limbs (principal); G56.23 Lesion of ulnar nerve, bilateral upper limbs; R20.0 Anesthesia of skin; M43.02 Spondylolysis, cervical region
CPT/HCPCS: 95886; 95911

== ENCOUNTER 2025-03-25 02:34 | Day surgery (SDC) | payer OTHER, SELFPAY ==
--- NOTE | 2025-03-19 10:43 | SUR.PREOP ---
[facility] has started construction of its new state of the art ER which will open Spring 2026. With this, we anticipate parking may be a challenge for some our surgical patients and families. Parking spaces are limited but are available for all Surgical, obstetrics, and ER patients sharing this lot. If you arrive and find you are having a hard time finding a parking space, please note that we understand the challenges, please drive around the hospital and park near Hospital Entrance 1. When you enter this entrance, you can ask a volunteer to direct or take you back to the surgical waiting area to check in. We appreciate everyone?s understanding of these expected challenges while we build for your future. Report to the Outpatient Waiting Room, entrance under the green pavilion located off [address], at time _6AM__ on date _03/25/25__. Planned Procedure Time: _730AM__.? Time changes happen often and if your time is changed the preop area will call you the afternoon before. - You and your visitor will be asked to self-screen and do not enter if you have any COVID symptoms. Please call surgeon if you need to reschedule. - A mask is optional within the hospital at this time. - No food or drink from midnight until time of surgery and no smoking, or chewing tobacco (or any form of nicotine). No chewing gum, candy or mints. Take only the following medications with a SIP of water on the morning of surgery: __albuterol if needed DO NOT STOP ANY OF YOUR OTHER PRESCRIPTION MEDICATIONS PRIOR TO SURGERY EXCEPT THE FOLLOWING Hold all vitamins and supplements for 3 days per anesthesiologist. Medications to discontinue per physician None noted Date to take last dose of vitamins/supplements___03/21/25____ Please no make-up, nail bermudian, hairspray, perfume, deodorant, or body powder the day of surgery.? No jewelry (including any body piercings) or valuables the day of surgery, leave them at home.? Please take a shower or bath the night before, or the morning of, surgery with an antibacterial soap.? Wear comfortable, loose fitting clothing.? - Jewelry must be removed prior to entering the operating room.? Rings and piercings that are not removed may be cut off. - The hospital will not accept responsibility for valuables.? - Please leave all valuables, including medications, at home the day of surgery. If you are going home after surgery, a licensed road driver must drive you home.? - NO public transportation without another adult if you receive anesthesia. - We recommend that an adult stay with you for 24 hours following discharge. - We also recommend that you do not drive, make important decision, drink alcoholic beverages, or take any drugs that were not prescribed by your health care provider for at least 24 hours after your discharge time. Follow any additional instructions given to you from your surgeon. Telephone instructions given to __Theresa___and asked if any additional questions and then verbalized understanding. Patient advised to call surgeon office or pre surgery nurse liaison [phone] if any additional questions.
[2025-03-19 11:03] VITALS: BMI 31.5
--- OUTSIDE RECORDS SUMMARY | 2025-03-25 02:37 | XMS_ITS | Clinical Summary ---
Author Organization [facility] Address [address] [place] [address] Care Team Providers Care Reference And Instruction Librarian Name Role Phone Nitin Villagran MD Primary Care Provider [phone] Allergies Active Allergy Reactions Criticality Noted Date Comments Erythromycin GI Upset 11/21/2024 Metronidazole Headache 06/07/2024 Hornet Venom Hives 11/21/2024 Levofloxacin Other (see comment) 06/07/2024 Tendon pain Sulfa Antibiotics Hives 06/07/2024 Tetracyclines & Related Other (see comment) 10/2024 ulcers Medications No known medications Active Problems Problem Noted Date Diagnosed Date Cat bite 09/02/2024 Immunizations Immunization Administration Dates Next Due Rabies (Rabavert) 09/16/2024,09/09/2024,09/06/19,09/02/2024 Tdap (Boostrix) 09/01/2024 Social History Tobacco Use Types Packs/Day Years Used Date Smoking Tobacco: Unknown Tobacco Cessation:Counseling Given: Not Answered Alcohol Use Standard Drinks/Week Comments Not Currently 0 (1 standard drink = 0.6 oz pur e alcohol) Comments No Sex and Gender Information Value Date Recorded Sex Assigned at Not on file Legal Sex Female 6:40 PM CDT Gender Identity Not on file Sexual Orientation Not on file Last Filed Vital Signs Vital Sign Reading Time Taken Comments Blood Pressure 115/75 11/21/2024 7:00 PM CDT Pulse 86 11/21/2024 7:00 PM CDT Temperature 36.6 C (97.8 F) 11/21/2024 7:00 PM CDT Respiratory Rate 18 11/21/2024 6:04 PM CDT Oxygen Saturation 100% 11/21/2024 7:00 PM CDT Inhaled Oxygen Concentration - - Weight 88.9 kg (196 lb) 11/21/2024 6:04 PM CDT Height 167.6 cm (5' 6) 11/21/2024 6:04 PM CDT Body Mass Index 31.64 11/21/2024 6:04 PM CDT Plan of Treatment Health Maintenance Due Date Last Done Comments Colorectal Cancer Screening Colonoscopy (10 Years) 1975 Annual Physical 1979 Hepatitis C 1994 Hepatitis B Vaccines (1 of 3 - 19+ 3-dose series) 1995 Cervical Cancer Screening Pap with HPV Testing (Age 30 to 64) Every 5 Years 2006 Cervical Cancer Screening Pap Smear (Age 30 to 64) Every 3 Years 08/28/2024 08/28/2021 Cervical Cancer Screening with HPV 08/28/2024 COVID-19 Vaccine ( season) 2025 01/06/2021, 12/16/2020 Influenza Adult (#1) 2025 04/02/2023, 03/08/20 22 Mammogram Screening 08/14/2026 08/14/2024, 01/10/2024, 07/10/2023, Additional history exists DTaP, Tdap and Td Vaccines (3 - Td or Tdap) 09/01/2034 09/01/2024, 03/31/2016 Hepatitis A Vaccines Aged Out No long er eligible based on patient's age to complete this topic Meningococcal B Vaccine Aged Out No l onger eligible based on patient's age to complete this topic Meningococcal Vaccine Aged Out No case marielena eligible based on patient's age to complete this topic Pneumococcal Vaccine: Pediatrics (0 to 5 Years) and At-Risk Patients (6 to 49 Years) Aged Out No longer eligible based on patient's age to complete this topic RSV Immunizations Under 20 Months Aged Out No longer eligible based on patient's age to complete this topic Insurance [facility] [facility] Care Teams Reference And Instruction Librarian Relationship Specialty Start Date End Date Nitin Villagran MD [address] [place] [address] PCP - General FAMILY PRACTICE 06/07/24
--- OUTSIDE RECORDS SUMMARY | 2025-03-25 02:37 | XMS_ITS | Patient Health Record ---
Author Organization [facility] Address [address] [place] [address] ANDRAE Kwon [address] Care Team Providers Care Telephone Surveyor Name Role Phone HANNAH CLEMENTS, YOCASTA Primary Care Provider Unavaila andry Dinh Austin Unavailable [phone] AWILDA IRVING PT Unavailable Unavailable ALLERGIES Allergen [...] (F40.231) Active confirmed Fear of medical treatment (833963630) Problem Sacroiliitis, not elsewhere classified (M46.1) Active confirmed Solitary sacroiliitis (648899240) Problem Spondylosis without myelopathy or radiculopathy, cervical region (M47.812) Active confirmed Cervical spondylosis without myelopathy (088104546) Problem Spondylosis without myelopathy or radiculopathy, lumbar region (M47.816) Active confirmed Lumbosacral spondylosis without myelopathy (59187594) Problem Spondylosis without myelopathy or radiculopathy, lumbosacral region (M47.817) Active confirmed Lumbosacral spondylosis without myelopathy (disorder) (50944468) Problem Intervertebral disc disorders with radiculopathy, lumbar region (M51.16) Active confirmed Radiculopathy d ue to lumbar intervertebral disc disorder (443919628403903) Problem Other intervertebral disc degeneration, lumbar region (M51.36) Active confirmed Degeneration of lumbar intervertebral disc (74287424) Problem Other intervertebral disc degeneration, lumbosacral region (M51.37) Active confirmed Degeneration of lumbosacral intervertebral disc (74451995) Problem Radiculopathy, cervical region (M54.12) Active confirmed Cervical radiculopathy (26673667) Problem Radiculopathy, lumbar region (M54.16) Active confirmed Lumbar radiculopathy (900947944) Problem Radiculopathy, lumbosacral region (M54.17) Active confirmed Lumbosacral radiculopathy (8114177) Problem Osseous stenosis of neural canal of lumbar region (M99.33) Active confirmed Spinal stenosis of lumbar region (29221009) Problem Intervertebral disc stenosis of neural canal of cervical region (M99.51) Active confirmed Spinal stenosis in cervical region (86081738) Problem Intervertebral disc stenosis of neural canal of lumbar region (M99.53) Active confirmed Spinal stenosis of lumbar region (78410639) Problem 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 anticoagulants (Z79.01) Active confirmed Long-term curre nt use of anticoagulant (843222016) Problem Cervical disc disorder at C5-C6 level with radiculopathy (M50.122) Active confirmed Cervical radiculopathy (71791794) PLAN OF TREATMENT No Information Insurance Providers Payer Name Payer Address Payer Phone Subscriber Number Group Number Insured Name Patient Relationship to Insured Coverage Start Date Coverage End Date [employer] [address] [place] [address] [id number] JUSTIN MÉNDEZ Self - patient is the insured [facility] [address] [place] [address] [id number] JUSTIN MÉNDEZ Self - patient is the insured MEDICAL (GENERAL) HISTORY Medical History History ICD Code Asthma Gastric ulcer GERD Hyperthyroidism Chronic Tachycardia Graves Disease Surgical History Surgery Date(Month/Year) Appendectomy 2005 Left L5-S1 microdiscectomy and foraminot shanel 2007
--- OUTSIDE RECORDS SUMMARY | 2025-03-25 02:37 | XMS_ITS | Encounter Summary ---
Author Organization [facility] Address [facility] [place] [address] Care Team Providers Care Tax Accountant Name Role Phone Nitin Villagran MD Primary Care Provider [phone] Encounter Details Date Type Department Care Team (Late st Contact Info) Description 09/03/2024 Therapy Plan [facility] [address] [place], [place] [id number] German Nava MD [address] [place] [address] Social History Tobacco Use Types Packs/Day Years Used Date Smoking Tobacco: Unknown Alcohol Use Standard Drinks/Week Comments Not Currently 0 (1 standard drink = 0.6 oz pur e alcohol) Comments No Sex and Gender Information Value Date Recorded Sex Assigned at Not on file Legal Sex Female 6:40 PM CDT Gender Identity Not on file Sexual Orientation Not on file documented as of this encounter Plan of Treatment Not on file documented as of this encounter Visit Diagnoses Diagnosis Cat bite- Primary Bite of other animal except arthropod documented in this encounter Care Teams Tax Accountant Relationship Specialty Start Date End Date Nitin Villagran MD [address] [address] PCP - General FAMILY PRACTICE 06/07/24 documented as of this encounter
--- OUTSIDE RECORDS SUMMARY | 2025-03-25 02:37 | XMS_ITS | Clinical Summary ---
Author Organization [place] [id number] [facility] Address [address] [place] [address] Care Team Providers Care Retail Brand Ambassador Name Role Phone Trevor Cantor MD Unavailable [phone] Nitin Villagran MD Primary Care Provider [phone] Yahaira Norwood Unavailable [phone] Melani Odonnell MD Unavailable Allergies Active Allergy [...] 01/06/2024 Assessment & Plan (07/06/2024 3:43 PM HYPERION DEVELOPER): The patient continue to wear CPAP auto titrating range 5-20 cm water pressure while sleeping. Her DME is [facility]. I did send an order over for the patient to be refitted for her mask. Assessment & Plan (01/06/2024 10:19 AM CDT): The patient is benefitting from the auto titrating CPAP unit with a range of 5- 20 cm water pressure for ongoing symptoms of ELLIOTT. Her DME supplier is [facility] home care services. She will follow up [...] (05/04/2022): Added automatically from request for surgery [id number] Palpitations 10/03/2021 COVID-19 10/03/2021 Dizziness 10/03/2021 Precordial [...] - 02/15/2025 11:59 PM CDT Hospital Encounter [facility] [address] [address] Breast pain Discharge Disposition: Discharge to home or self care 02/15/2025 10:23 AM CDT - 02/15/2025 11:59 PM CDT Hospital Encounter [facility] [address] [address] Follow-up examination of abnormal mammogram Discharge Disposition: Discharge to home or self care 01/15/2025 12:30 PM CDT Office Visit [facility] at [address] [address] Madelin Diaz NP Bee sting, accidental or unintentional, initial encounter (Primary Dx) 01/06/2025 Telephone GENERIC EXTERNAL DATA DEPARTMENT Reina Meyers NP 01/01/2025 11:40 AM CDT - 01/01/2025 11:59 PM CDT Hospital Encounter [address] [address] Mixed hyperlipidemia Discharge Disposition: Discharge to home or self care 01/01/2025 11:30 AM CDT Lab [facility] Outpatient Lab at [address] [address] Mixed hyperlipidemia (Primary Dx) from Last 3 Months Immunizations Immunization Administration Dates Next Due Pfizer SARS-CoV-2 Monovalent Vaccination (12+ Yrs) PURPLE 12/16/2020 Tdap 03/31/2016 Surgical History Surgery Date Site/Laterality Comments [place] CAUTERY CERVIX CRYOCAUTER Y INITIAL/REPEAT Cervix Cryosurgery [...] Grandfather Dinh Heart attack Paternal Grandfather Dinh [place] Heart disease Paternal Grandfather Dinh Hyperlipidemia Paternal [...] on file Legal Sex Female 7:52 AM HYPERION DEVELOPER Gender Identity Female 04/25/2020 4:36 PM HYPERION DEVELOPER Sexual Orientation Straight 04/25/2020 4: 36 PM HYPERION DEVELOPER Obstetrics History Para Term AB IAB SAB [...] 09/01/2024, 03/31/2016 Medical Devices Implanted Type Area Resident Care Spec Device Identifier Shelf Expiration Date Model / Serial / Lot [facility] Marker Biospy Site Mini Cork Shape [employer] [place] - [id number] Implanted:Qty: 1 on 01/04/2023 by Gareth Polk MD at [facility] Left: Breast [employer] [facility] [id number] 03/27/2023 [facility] / / [id number] Procedures Procedure Name Priority Date/Time Associated Diagnosis [...] probably benign finding COLONOSCOPY 06/26/2024 9:46 AM HYPERION DEVELOPER PAP AND HIGH RISK HPV, REFLEX TO [...] as per ACR guidelines. OVERALL FINAL ASSESSMENT: [id number] Electronically signed by: Jacquelin Soriano M.D. Narrative [...] as per ACR guidelines. OVERALL FINAL ASSESSMENT: [id number] Electronically signed by: Jacquelin Soriano M.D. Narrative [...] ORDERABLES Final Resul t Performing Organization Address City/[facility]/ZIP Co de Phone Number [facility] [address] [address] [place] [address] * TSH (01/01/2025 11:40 AM CDT) Pathologist [facility] Thyroid Stimulating Hormone 2.35 0.30 - 4.20 mcIUnit/mL Blood Venous blood specimen / Unknown 01/01/2025 11:40 AM CDT 01/04/2025 9:47 AM CDT Narrative KENAN YUSUF - 01/04/2025 10:23 AM CDT Fax results to [phone] melani Corado Provider Result Type Result Stat us Not In File Miscellaneous LAB BLOOD ORDERABLES F inal Result Performing Organization Address [facility] Co de Phone Number [facility] [address] [address] [place] [address] * (ABNORMAL) Hemoglobin A1c (01/01/2025 11:40 AM CDT) Hgb A1C 6.2(H) 4.0 - 5.6 % Estimated Average Glucose 131 mg/dL KENAN YUSUF Comment: The ADA recommends reporting an estimated Average Glucose (eAG) with all Hemoglobin A1c results using the equation derived from a study of 507 normal and diabetic adults. Minority populations were underrepresented and children were not included. (Diabetes Care 31:0134-7414, 2008). The eAG is not equivalent to a fasting glucose. Blood Venous blood specimen / Unknown 01/01/2025 11:40 AM CDT 01/04/2025 9:47 AM CDT Narrative KENAN YUSUF - 01/04/2025 10:08 AM CDT Fax results to [phone] melani Odonnell us Not In File Miscellaneous LAB BLOOD ORDERABLES F inal Result KENAN [address] [address] [place] [address] * (ABNORMAL) Lipid panel (01/01/2025 11:40 AM [...] 01/04/2025 10:23 AM CDT Fax results to [phone] melani Odonnell us Not In File Miscellaneous LAB BLOOD ORDERABLES F inal Result KENAN [address] [address] Department [place] [address] * Comprehensive metabolic panel (01/01/2025 11:40 AM [...] BLOOD ORDERABLES Final Resul t KENAN YUSU[facility] [address] [address] [place] [address] * Diagnostic Mammogram Bilateral [place] (08/14/2024 [...] by Quinton Mistry M.D. MD: Report ID: [id number] Reading Location: [facility] us Gareth Polk MD IMG MAMMO PROCEDURES Final Res ult * Colonoscopy (06/26/2024 9:46 AM HYPERION DEVELOPER) Anatomical Region Laterality Modality Other Narrative Procedure Note Geena Lyle MD - 06/26/2024 9:[address] [facility] GI ENDOSCOPY Patient Name: Bess Méndez Procedure Date: 06/26/2024 9:46 AM Date of : 1975 Admit Type: Outpatient Age: 49 Gender: Female Attending MD: Geena Lyle M.D. Room: [facility] ENDOSCOPY ROOM 05 Note Status: Finalized Procedure: [...] On: 06/26/2024 9:46 AM Recognized by the [place] [employer] for promoting quality in endoscopy us Genea Lyle MD ENDOSCOPY PROCEDURES Final Resul t * Pap and High Risk HPV, reflex to Genotyping (08/28/2021 11:38 AM CDT) Thin prep (Pap test) 08/28/2021 11:38 AM CDT 08/29/2021 11:38 AM CDT Narrative PATHOLOGY [facility] - 08/31/2021 5:56 PM CDT [facility] Department of Pathology [address] [place] [address] Final Report with Addendum Note to Patients: [...] the details. Patient Name: BESS MÉNDEZ Address: [address] [place] [address]- Gender: F : 1975 (Age: 46) Service: Laboratory Location: [facility] #: [id number] Patient Type: [facility] SPECIMEN Taken: 08/28/2021 Received: 08/29/2021 Accessioned:: 08/30/2021 Reported: 08/31/2021 Physician(s): Trevor Cantor M.D. [facility] Diagnosis: Source of Specimen: SCREENING THIN PREP [...] determined by the Surgical Pathology Department at [facility] as part of an ongoing quality assurance project manager program and in compliance with federally mandated [...] characteristics determined by the Surgical Pathology Department [facility]. It has not been cleared or approved by the U. S. Food and Drug Administration. Trevor Cantor MD LAB CYTOLOGY ORDERABLES Final Result [facility] from Last 3 Months or Most Recently Relevant to Health Maintenance Insurance [place] [id number] [place] [address] [facility] , [place] [id number] Care Teams Retail Brand Ambassador Relationship Specialty Start Date End Date Nitin Villagran MD [address] [place] [address] PCP - General Family Medicine 08/10/23 Trevor Cantor MD [address] [facility] [address] Consulting Physician Obstetrics and Gynecology 11/07/21 Yahaira Norwood PA [address] [place] [address] Physician Web Site Admin Family Medicine 08/10/23 Melani Odonnell MD [address] [place] [address] Consulting Physician Cardiovascular Disease 08/10/23
[2025-03-25 06:10] VITALS: BP 119/84; PULSE 81; RESP 16; TEMP 36.1; O2SAT 99
[2025-03-25] MEDS: ACETAMINOPHEN 500 MG TABLET 1000 MG PO (06:17)
[2025-03-25] MEDS: LACTATED RINGERS 1,000 ML 30 ML IV CONT (06:20)
[2025-03-25 06:38] LABS: BEDSIDEPREGUCG Negative (Negative)
--- NOTE | 2025-03-25 06:44 | WPDHPUPDATE1 ---
History and Physical Update Update Date/Time: 03/25/25 06:44 Patient seen and examined in pre-operative holding area. No interval change in medical history or symptoms. Patient recalls previous discussion of benefits and alternatives to procedure. Continues to desire to proceed with right endoscopic possible open carpal tunnel release and right cubital tunnel release . Reviewed procedure, post-op expectations and risks including but not limited to bleeding, infection, injury to tendon/nerve/vessel, decreased hand function, stiffness, RSD, no change or worsening of symptoms. I discussed the possible use of assistants and their participation in the case. Patient stated understanding and signed the consent form wishing to proceed.
--- NOTE | 2025-03-25 06:45 | W.PM.PROC2 ---
Procedure Note - Detailed Date of Procedure 03/25/25 Pre-op Diagnosis M[place] Carpal & Cubital Tunnel Syndrome Post-op Diagnosis Same Procedure Performed right ectr and CuTR Surgeon Grady Nuñez MD Barrel [employer]sembler Helper Jayne Farnsworth PA-C Anesthesia MAC Description of Procedure INFORMED CONSENT: The patient was seen and examined and marked in the pre-op area.? The patient signed the consent form. PROCEDURE IN DETAIL:The patient taken back to OR on the stretcher in supine position. Time out performed with anesthesia, surgeon and staff agreeing on patient's name site and surgery to be performed SCDs were placed on the lower extremities and inflated. A tourniquet was placed on {right} upper extremity and antibiotics given IV After anesthesia administered sedation I injected {10}cc 1%lido with epi and 0.5% marcaine plain at the operative sites The?{right upper extremity}?was prepped and draped in sterile fashion the??{right upper extremity} was? exsanguinated with Esmarch bandage and tourniquet inflated to 250mmHg I made a transverse incision in the {right} volar distal wrist crease through skin and dermis with 15 blade scalpel.? Littler scissors spread down to antebrachial fascia. A small incision was made in antebrachial fascia allowing access to Carpal tunnel. I proceeded with sequential dilation staying in line with the ring finger and hugging the hook of the hamate.? I then used the synovial elevator to free any adhesions from the underside of the transverse carpal ligament. Next I was able to insert the Microaire endoscopic carpal tunnel device with direct visualization of the transverse fibers on the monitor and proceeded with complete segmental retrograde release of the ligament in its entirety.? I irrigated with normal saline and closed with 4-0 monocryl for dermis and subcuticular closure. I next proceeded with making a longitudinal incision between two heads for flexor carpi ulnaris at end of {right} cubital tunnel with 15 blade scalpel.? Littler scissors were used to spread down to FCU fascia.? An incision was made in FCU fascia and ulnar nerve identified exiting cubital tunnel.? I proceeded with complete retrograde release of the cubital tunnel including 7cm proximal for the intermuscular septum.? The nerve appeared healthy with visible vaso nervorum.? There was no subluxation on full elbow range of motion. ? I irrigated with normal saline and closure with3-0 vicryl and 4-0 monocryl. The incisions were covered with Dermabond then 4x4s, kelsy, and a posterior elbowand volar wrist splint for patient safety, security and comfort and secured with george bandages after the tourniquet was let down noting the hand was warm and well perfused.? Patient awaken from anesthesia and transferred to recovery in stable condition Complications - none EBL- 1cc Disposition - home in stable condition Jayne Farnsworth PA-C was essential for positioning, retraction, closure and dressing placement. [facility] [place] - Charge Forward: Surgery Billing ([id number] same for Jayne adding )
--- NOTE | 2025-03-25 07:06 | WPDANESEPPF ---
Anes - Initial Pre Proc Eval Procedure: Operation Date: 03/25/25 07:30 Proposed Procedures p Right Endoscopic Carpal Tunnel Release, Possible Open, Right Cubital Tunnel Release - Grady Nuñez MD Date/Time: 03/25/25 07:06 Surgeon: Grady Nuñez MD Pre Op Diagnosis: [place] Carpal & Cubital Tunnel Syndrome Patient Data Age: 49 Gender: F Height: 1.68 m Weight: 87.9 kg Last Vital Signs Temp 96.9 F L 03/25/25 06:10 Pulse 81 03/25/25 06:10 Resp 16 03/25/25 06:10 BP 119/84 03/25/25 06:10 Pulse Ox 99 03/25/25 06:10 O2 Del Method Room Air 03/25/25 06:10 Allergies Allergy/AdvReac Type Severity Reaction Status Date / Time levofloxacin Allergy Mild Joint Pain Verified 03/25/25 06:24 influenza virus vaccine, AdvReac Severe Nausea and Verified 03/25/25 06:24 specific Vomiting cetyl alcohol AdvReac Mild RASH Verified 03/25/25 06:24 erythromycin base AdvReac Mild Rash Verified 03/25/25 06:24 paraben AdvReac Mild Rash Verified 03/25/25 06:24 propylene glycol AdvReac Mild Rash Verified 03/25/25 06:24 skin cleanser AdvReac Mild RASH Verified 03/25/25 06:24 soap AdvReac Mild Rash Verified 03/25/25 06:24 sodium lauryl sulfate AdvReac Mild RASH Verified 03/25/25 06:24 stearyl alcohol AdvReac Mild RASH Verified 03/25/25 06:24 Sulfa (Sulfonamide AdvReac Mild Rash Verified 03/25/25 06:24 Antibiotics) sulfanilamide AdvReac Mild Rash Verified 03/25/25 06:24 tetracycline AdvReac Mild Rash Verified 03/25/25 06:24 venom-wasp AdvReac Mild Redness of Verified 03/25/25 06:24 Skin Home Medications ?Medication ?Instructions ?Recorded ?Confirmed ?Type famotidine 20 mg tablet (Pepcid) 20 mg PO DAILY 05/20/20 03/25/25 History levonorgestrel (Mirena) See Rx Instructions .Route .COMPLEX 07/17/23 03/25/25 History metoprolol succinate 25 mg 25 mg PO DAILY 07/17/23 03/25/25 History tablet,extended release 24 hr cetirizine 10 mg capsule (Zyrtec) 10 mg PO DAILY 07/24/23 03/25/25 History azelastine 137 mcg (0.1 %) nasal 137 mcg intranasal Q12H 12/30/23 03/19/25 History spray albuterol sulfate 90 mcg/actuation 2 puff inhalation Q4H PRN 02/27/24 03/19/25 Rx aerosol inhaler shortness of breath or wheezing #3 device cholecalciferol (vitamin D3) 250 250 mcg PO DAILY 10/20/24 03/25/25 History mcg (10,000 unit) capsule iodine 150 mcg tablet 150 mcg PO DAILY 10/20/24 03/25/25 History magnesium 200 mg tablet 200 mg PO DAILY 10/20/24 03/25/25 History epinephrine 0.3 mg/0.3 mL 0.3 mg (0.3 mL) IM PRN PRN 11/24/24 03/19/25 Rx injection, auto-injector Allergic Reaction #2 ea methocarbamol 500 mg tablet 500 mg PO TID #30 tabs 12/30/24 03/19/25 Rx thyroid 90 mg tablet 90 mg PO DAILY 03/19/25 03/25/25 History Laboratory Tests 03/25/25 06:10 POC Urine HCG, Qual Negative (Negative) Patient hx anesthesia problems: post op nausea/vomiting and other (early emergence from colonoscopy in the past. ) Family hx anesthesia problems: none Results Review: All pre-operative results and documents have been reviewed as part of the pre-operative evaluation. [facility] Past Medical History Medical History Cubital tunnel syndrome of both upper extremities Carpal tunnel syndrome Spondylolysis of cervical spine Numbness in both hands Anaphylactic reaction to wasp sting Diverticulitis Cat bite Rash Left shoulder pain Left leg pain Joint pain Flu-like symptoms Palpitations Presence of Mirena IUD (05/15/22) Dysphagia Facial numbness Encounter for vitamin deficiency screening COVID-19 Screen for colon cancer Anxiety about health Stress disorder, acute Chest pain Allergic reaction Chronic pain of both feet Chronic low back pain Chronic neck pain Vertigo Holter monitor, abnormal COVID-19 Elevated fasting glucose Screening for diabetes mellitus Hyperthyroidism Gastric ulcer GERD (gastroesophageal reflux disease) Asthma Peripheral neuropathy Surgical History Surgical History S/P breast biopsy, left History of lumbar surgery History of lumpectomy of left breast Hx of appendectomy Hx of tonsillectomy Family History Family History Grandparent Family history of lung cancer Diabetes mellitus Father No problems noted. Mother Gastrointestinal complaint Sibling Depression Other Hypertension Social History Social History Smoking status: Former smoker Tobacco type: cigars Second hand tobacco smoke exposure: Yes Additional smoking assessment comments: 1 cigar once/year Alcohol intake: current Drinks per week: 5 Substance use: never Substance use type: does not use Do You Feel Safe in your Home?: Yes Lack of Transportation: No Lack of Food: Never True Current Housing: I Have Housing Concerned About Future Housing: No Difficulty Paying Gas/Electric Bills: No Difficulty Paying for Meds: No Currently Unemployed: YES Education: Associate Degree Difficulty w/ Childcare or Family Care: No Living arrangements: with family Additional living arrangements comments: Occupation/Education: 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 ) Neurological: alert and oriented Last oral intake: >/= 8 hours ASA classification: II Emergent: no Anesthetic plan: proceed Anesthesia type and monitoring: general GIVS and standard monitoring Results Review: All pre-operative results and documents have been reviewed as part of the pre-operative evaluation. ELLIOTT on CPA, resting tachycardia. Informed Consent: The patient's anesthetic plan and its attendant risks and benefits were discussed with the patient/family/POA. Questions were solicited and answers provided to the satisfaction of the patient/family/POA.
[2025-03-25] MEDS: ceFAZolin 2 GM in SODIUM CHLORIDE 0.9% IV 50 ML 100 ML IVPB (07:29)
[2025-03-25] MEDS: KETOROLAC 30 MG/ML VIAL (*BKC) IV PUSH (07:43)
[2025-03-25] MEDS: LIDO 1%/EPINEPHRINE 1:100,000 50 ML VIAL (07:48)
[2025-03-25 08:01] VITALS: BP 96/56; PULSE 86; RESP 16; O2SAT 100
[2025-03-25 08:20] VITALS: BP 103/59; PULSE 85; RESP 16; O2SAT 100
[2025-03-25 08:50] VITALS: BP 105/76; PULSE 71; RESP 16
== END 2025-03-25 09:01 | disposition home or self-care (01) ==
PROVIDERS: PCP Family Medicine; Visit Provider Plastic Surgery
PROC: 01N54ZZ Release Median Nerve, Percutaneous Endoscopic Approach (ICD-10-PCS; CPT 29848; principal; 2025-03-25 07:30)
DX: G56.01 Carpal tunnel syndrome, right upper limb (principal); G56.21 Lesion of ulnar nerve, right upper limb
CPT/HCPCS: 29848; 64718; J0690; A9270; J1100; J1885; J2003; J2004; J2250; J2405; J2704; J3010; J7120

== ENCOUNTER 2025-04-19 17:00 | Outpatient (CLI) | payer OTHER, SELFPAY ==
[2025-04-19 18:03] LABS: Add Urine Microscopic? YES; Appearance Urine Clear (Clear); Glucose Urine UA Negative (Negative); Leukocyte Esterase Ur 2+ LEU/UL (Negative); Nitrate Urine Negative (Negative); Non Pathogenic Casts 0-2; Specific Grav Ur 1.016 (1.001-1.035)
== END 2025-04-19 17:01 | disposition home or self-care (01) ==
LOC: ANHLAB 17:01
PROVIDERS: PCP Family Medicine; Visit Provider Obstetrics & Gynecology
DX: R35.0 Frequency of micturition (principal)
CPT/HCPCS: 81001; 87086